=== PATIENT | male | born 1960 | race African-American/Black ===

== ENCOUNTER 2019-03-26 20:07 | Inpatient (IN) | payer OTHER ==
[2019-03-26 21:44] VITALS: BMI 26.9
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
[2019-03-27] MEDS ORDERED: MAGNESIUM HYDROX 2400MG/30ML ORAL SUSPENSION 30 ML CUP PO PRN (01:21)
[2019-03-27] MEDS ORDERED: MAGNESIUM CITRATE 300 ML BOTTLE PO PRN (01:21)
[2019-03-27] MEDS ORDERED: NICOTINE POLACRILEX 2 MG GUM BUC PRN (01:21)
[2019-03-27] MEDS ORDERED: guaiFENesin 200 MG/10 ML 10 ML UNIT-DOSE CUPS PO PRN (01:21)
[2019-03-27] MEDS ORDERED: ACETAMINOPHEN 325 MG TABLET (FP) PO PRN (01:21)
[2019-03-27] MEDS ORDERED: MENTHOL/PHENOL 1 EACH UD MM PRN (01:21)
[2019-03-27] MEDS ORDERED: LOPERAMIDE HCL 2 MG CAPSULE PO PRN (01:21)
[2019-03-27] MEDS ORDERED: MAG HYDROX/AL HYDROX/SIMETH 30 ML UNIT-DOSE CUP PO PRN (01:21)
[2019-03-27] MEDS ORDERED: TUBERCULIN PPD 5 TU/0.1ML VIAL ID ONE (02:01)
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
--- NOTE | 2019-03-27 10:14 | EKG ---
Test Reason : Blood Pressure : / mmHG Vent. Rate : 072 BPM Atrial Rate : 072 BPM P-R Int : 122 ms QRS Dur : 098 ms QT Int : 428 ms P-R-T Axes : 074 054 054 degrees QTc Int : 468 ms NORMAL SINUS RHYTHM NORMAL ECG WHEN COMPARED WITH ECG OF 27-MAR-2019 01:28, NO SIGNIFICANT CHANGE WAS FOUND Confirmed by MD Arnaud, Rafal ([id number]) on 03/27/2019 10:14:18 AM Referred By: Collin BERG Confirmed By:Rafal Lares MD
--- NOTE | 2019-03-27 10:14 | EKG ---
Test Reason : Blood Pressure : / mmHG Vent. Rate : 061 BPM Atrial Rate : 061 BPM P-R Int : 126 ms QRS Dur : 108 ms QT Int : 450 ms P-R-T Axes : 075 049 051 degrees QTc Int : 453 ms NORMAL SINUS RHYTHM POSSIBLE LEFT ATRIAL ENLARGEMENT ST ELEVATION, CONSIDER EARLY REPOLARIZATION BORDERLINE ECG WHEN COMPARED WITH ECG OF 14-JUN-2017 08:41, NO SIGNIFICANT CHANGE WAS FOUND Confirmed by MD Arnaud, Rafal ([id number]) on 03/27/2019 10:13:59 AM Referred By: PENG Confirmed By:Rafal Lares MD
[2019-03-27] MEDS: PRENATAL VITAMINS W/ FOLIC ACID TABLET (FP) PO SCH (10:57)
[2019-03-27] MEDS: TAMSULOSIN HCL 0.4 MG CAP PO SCH (10:57)
[2019-03-27] MEDS: NICOTINE 14 MG/24 HOURS TOPICAL PATCH TD SCH (10:57)
[2019-03-27] MEDS: ASPIRIN 81 MG CHEWABLE TABLETS PO SCH (10:57)
[2019-03-27 12:14] LABS: ALBUMIN 3.6 g/dl (3.4-5.0); BILIRUBIN,TOTAL 0.5 mg/dL (0.2-1); BLOOD UREA NITROGEN 14.8 mg/dL (7-18); CALCIUM 9.2 mg/dL (8.5-10.1); CREATININE 1.1 mg/dL (0.55-1.3); POTASSIUM 4.2 mmol/L (3.5-5.1); TOT PROT 7.4 g/dl (6.4-8.2)
[2019-03-27 12:15] LABS: HEMATOCRIT 41.6 % (35.4-49); HEMOGLOBIN 13.7 GM/dL (11.7-16.9); MCH 28.5 pg (25.7-33.7); MCHC 32.9 g/dl (32.0-35.9); MEAN CELL VOLUME 86.7 fl (80-96); MEAN PLT VOLUME 7.7 fl (7.5-11.1); PLATELET COUNT 285 K/MM3 (134-434); RDW 14.3 % (11.9-15.9)
[2019-03-27 14:40] LABS: EPI CELLS 0.1 /HPF (0-5/HPF); HYALINE CASTS 51 /lpf (0-8); PH,URINE 5.5 (5.0-8.0); URINE APPEARANCE CLEAR; URINE BACTERIA 2.2 /hpf (NEGATIVE); URINE BILIRUBIN NEGATIVE (NEGATIVE); URINE COLOR YELLOW; URINE GLUCOSE (UA) NEGATIVE (NEGATIVE); URINE KETONE NEGATIVE (NEGATIVE); URINE LEUK ESTERASE 1+ (NEGATIVE); URINE NITRITE NEGATIVE (NEGATIVE); URINE PROTEIN NEGATIVE (NEGATIVE); URINE RBC 2 /hpf (0-4); URINE WBC 156 /hpf (0-5)
[2019-03-27] MEDS: IBUPROFEN 400 MG TABLET (FP) PO PRN (15:37)
[2019-03-27] MEDS: ATORVASTATIN CA 10 MG TABLET (FP) PO SCH (21:39)
[2019-03-27] MEDS: MIRTAZAPINE 15 MG TABLET (FP) PO SCH (21:39)
[2019-03-27] MEDS: THIAMINE HCL 100 MG TABLET (FP) PO SCH (21:40)
[2019-03-27] MEDS ORDERED: PATIENT'S OWN MEDICATION (NON-FORMULARY) (Pravastatin Sodium 20 MG) PO SCH (22:00)
[2019-03-28] MEDS: ASPIRIN 81 MG CHEWABLE TABLETS PO SCH (10:21)
[2019-03-28] MEDS: PRENATAL VITAMINS W/ FOLIC ACID TABLET (FP) PO SCH (10:21)
[2019-03-28] MEDS: TAMSULOSIN HCL 0.4 MG CAP PO SCH (10:21)
[2019-03-28] MEDS: NICOTINE 14 MG/24 HOURS TOPICAL PATCH TD SCH (10:22)
--- NOTE | 2019-03-28 14:09 | PN ---
[facility] Progress Note Note: Pt is a 58 y/o male with a hx of SALO-alcohol and cocaine use admitted to rehab from [facility] yesterday. Pt reports fatigue/body aches and wanted to rest. Pt has medical history of anemia, BPH, Genital herpes, Neuropathy, hyperlipidemia and anemia. Psychiatric history of PTSD and depression. Vital Signs - 24 hr 03/28/19 03/28/19 03/28/19 00:30 03:30 07:19 Temperature 97.7 F Pulse Rate 71 Respiratory 18 18 18 Rate Blood Pressure 117/79 Laboratory Tests 03/27/19 03/27/19 03/27/19 06:37 07:00 07:00 WBC 4.0 RBC 4.80 Hgb 13.7 Hct 41.6 D MCV 86.7 MCH 28.5 MCHC 32.9 RDW 14.3 Plt Count 285 MPV 7.7 Sodium 141 Potassium 4.2 Chloride 106 Carbon Dioxide 28 Anion Gap 7 L BUN 14.8 Creatinine 1.1 Est GFR (CKD-EPI)AfAm 84.71 Est GFR (CKD-EPI)NonAf 73.09 Random Glucose 93 Calcium 9.2 Total Bilirubin 0.5 AST 24 ALT 37 Alkaline Phosphatase 71 Total Protein 7.4 Albumin 3.6 Urine Color Yellow Urine Appearance Clear Urine pH 5.5 Ur Specific [place] 1.028 Urine Protein Negative Urine Glucose (UA) Negative Urine Ketones Negative Urine Blood Negative Urine Nitrite Negative Urine Bilirubin Negative Urine Urobilinogen 1.0 Ur Leukocyte Esterase 1+ H Urine WBC (Auto) 156 Urine RBC (Auto) 2 Urine Casts (Auto) 51 U Epithel Cells (Auto) 0.1 Urine Bacteria (Auto) 2.2 RPR Titer 03/27/19 07:00 WBC RBC Hgb Hct MCV MCH MCHC RDW Plt Count MPV Sodium Potassium Chloride Carbon Dioxide Anion Gap BUN Creatinine Est GFR (CKD-EPI)AfAm Est GFR (CKD-EPI)NonAf Random Glucose Calcium Total Bilirubin AST ALT Alkaline Phosphatase Total Protein Albumin Urine Color Urine Appearance Urine pH Ur Specific [place] Urine Protein Urine Glucose (UA) Urine Ketones Urine Blood Urine Nitrite Urine Bilirubin Urine Urobilinogen Ur Leukocyte Esterase Urine WBC (Auto) Urine RBC (Auto) Urine Casts (Auto) U Epithel Cells (Auto) Urine Bacteria (Auto) RPR Titer Nonreactive Alert o x 3 nad oob ambulating with steady gait labs noted UA noted abnl A/P new pt to rehab Maintain safety increase po fluids UC motrin prn
[2019-03-28] MEDS: ATORVASTATIN CA 10 MG TABLET (FP) PO SCH (21:34)
[2019-03-28] MEDS: MELATONIN 5 MG TABLETS PO PRN (21:35)
[2019-03-28] MEDS: MIRTAZAPINE 15 MG TABLET (FP) PO SCH (21:35)
[2019-03-28] MEDS: THIAMINE HCL 100 MG TABLET (FP) PO SCH (21:35)
[2019-03-29] MEDS: PRENATAL VITAMINS W/ FOLIC ACID TABLET (FP) PO SCH (10:41)
[2019-03-29] MEDS: NICOTINE 14 MG/24 HOURS TOPICAL PATCH TD SCH (10:41)
[2019-03-29] MEDS: TAMSULOSIN HCL 0.4 MG CAP PO SCH (10:41)
[2019-03-29] MEDS: ASPIRIN 81 MG CHEWABLE TABLETS PO SCH (10:41)
[2019-03-29] MEDS: THIAMINE HCL 100 MG TABLET (FP) PO SCH (21:26)
[2019-03-29] MEDS: ATORVASTATIN CA 10 MG TABLET (FP) PO SCH (21:26)
[2019-03-29] MEDS: MIRTAZAPINE 15 MG TABLET (FP) PO SCH (21:26)
[2019-03-30] MEDS: TAMSULOSIN HCL 0.4 MG CAP PO SCH (10:10)
[2019-03-30] MEDS: PRENATAL VITAMINS W/ FOLIC ACID TABLET (FP) PO SCH (10:10)
[2019-03-30] MEDS: NICOTINE 14 MG/24 HOURS TOPICAL PATCH TD SCH (10:11)
[2019-03-30] MEDS: ASPIRIN 81 MG CHEWABLE TABLETS PO SCH (10:11)
[2019-03-30] MEDS: THIAMINE HCL 100 MG TABLET (FP) PO SCH (21:34)
[2019-03-30] MEDS: ATORVASTATIN CA 10 MG TABLET (FP) PO SCH (21:34)
[2019-03-30] MEDS: MIRTAZAPINE 15 MG TABLET (FP) PO SCH (21:34)
[2019-03-31] MEDS: TAMSULOSIN HCL 0.4 MG CAP PO SCH (09:00)
[2019-03-31] MEDS: NICOTINE 14 MG/24 HOURS TOPICAL PATCH TD SCH (10:59)
[2019-03-31] MEDS: PRENATAL VITAMINS W/ FOLIC ACID TABLET (FP) PO SCH (10:59)
[2019-03-31] MEDS: ASPIRIN 81 MG CHEWABLE TABLETS PO SCH (10:59)
[2019-03-31] MEDS: MIRTAZAPINE 15 MG TABLET (FP) PO SCH (21:29)
[2019-03-31] MEDS: IBUPROFEN 400 MG TABLET (FP) PO PRN (21:29)
[2019-03-31] MEDS: ATORVASTATIN CA 10 MG TABLET (FP) PO SCH (21:29)
[2019-03-31] MEDS: THIAMINE HCL 100 MG TABLET (FP) PO SCH (21:29)
[2019-04-01] MEDS: TAMSULOSIN HCL 0.4 MG CAP PO SCH (08:50)
[2019-04-01] MEDS: ASPIRIN 81 MG CHEWABLE TABLETS PO SCH (10:20)
[2019-04-01] MEDS: PRENATAL VITAMINS W/ FOLIC ACID TABLET (FP) PO SCH (10:20)
[2019-04-01] MEDS: NICOTINE 14 MG/24 HOURS TOPICAL PATCH TD SCH (10:21)
[2019-04-01] MEDS: THIAMINE HCL 100 MG TABLET (FP) PO SCH (21:04)
[2019-04-01] MEDS: ATORVASTATIN CA 10 MG TABLET (FP) PO SCH (21:04)
[2019-04-01] MEDS: MIRTAZAPINE 15 MG TABLET (FP) PO SCH (21:05)
[2019-04-02] MEDS: TAMSULOSIN HCL 0.4 MG CAP PO SCH (10:30)
[2019-04-02] MEDS: PRENATAL VITAMINS W/ FOLIC ACID TABLET (FP) PO SCH (10:30)
[2019-04-02] MEDS: ASPIRIN 81 MG CHEWABLE TABLETS PO SCH (10:31)
[2019-04-02] MEDS: NICOTINE 14 MG/24 HOURS TOPICAL PATCH TD SCH (10:31)
[2019-04-02] MEDS: ATORVASTATIN CA 10 MG TABLET (FP) PO SCH (21:59)
[2019-04-02] MEDS: THIAMINE HCL 100 MG TABLET (FP) PO SCH (22:00)
[2019-04-02] MEDS: MIRTAZAPINE 15 MG TABLET (FP) PO SCH (22:00)
[2019-04-03] MEDS: PRENATAL VITAMINS W/ FOLIC ACID TABLET (FP) PO SCH (10:54)
[2019-04-03] MEDS: ASPIRIN 81 MG CHEWABLE TABLETS PO SCH (10:54)
[2019-04-03] MEDS: TAMSULOSIN HCL 0.4 MG CAP PO SCH (10:54)
[2019-04-03] MEDS: NICOTINE 14 MG/24 HOURS TOPICAL PATCH TD SCH (10:54)
[2019-04-03] MEDS: THIAMINE HCL 100 MG TABLET (FP) PO SCH (21:58)
[2019-04-03] MEDS: ATORVASTATIN CA 10 MG TABLET (FP) PO SCH (21:58)
[2019-04-03] MEDS: MIRTAZAPINE 15 MG TABLET (FP) PO SCH (21:58)
[2019-04-04] MEDS: TAMSULOSIN HCL 0.4 MG CAP PO SCH (09:30)
[2019-04-04] MEDS: ASPIRIN 81 MG CHEWABLE TABLETS PO SCH (10:57)
[2019-04-04] MEDS: PRENATAL VITAMINS W/ FOLIC ACID TABLET (FP) PO SCH (10:57)
[2019-04-04] MEDS: NICOTINE 14 MG/24 HOURS TOPICAL PATCH TD SCH (10:57)
[2019-04-04] MEDS: P-EPHED 60MG/TRIPROLIDI 2.5MG TABLET PO PRN ×2 (11:11→22:07)
[2019-04-04] MEDS: MIRTAZAPINE 15 MG TABLET (FP) PO SCH (22:06)
[2019-04-04] MEDS: ATORVASTATIN CA 10 MG TABLET (FP) PO SCH (22:06)
[2019-04-04] MEDS: THIAMINE HCL 100 MG TABLET (FP) PO SCH (22:06)
[2019-04-05] MEDS: TAMSULOSIN HCL 0.4 MG CAP PO SCH (10:39)
[2019-04-05] MEDS: NICOTINE 14 MG/24 HOURS TOPICAL PATCH TD SCH (10:39)
[2019-04-05] MEDS: ASPIRIN 81 MG CHEWABLE TABLETS PO SCH (10:39)
[2019-04-05] MEDS: PRENATAL VITAMINS W/ FOLIC ACID TABLET (FP) PO SCH (10:39)
[2019-04-05] MEDS: P-EPHED 60MG/TRIPROLIDI 2.5MG TABLET PO PRN ×2 (10:40→21:48)
[2019-04-05] MEDS: THIAMINE HCL 100 MG TABLET (FP) PO SCH (21:47)
[2019-04-05] MEDS: MIRTAZAPINE 15 MG TABLET (FP) PO SCH (21:47)
[2019-04-05] MEDS: ATORVASTATIN CA 10 MG TABLET (FP) PO SCH (21:47)
[2019-04-06] MEDS: PRENATAL VITAMINS W/ FOLIC ACID TABLET (FP) PO SCH (09:30)
[2019-04-06] MEDS: ASPIRIN 81 MG CHEWABLE TABLETS PO SCH (09:30)
[2019-04-06] MEDS: TAMSULOSIN HCL 0.4 MG CAP PO SCH (09:30)
[2019-04-06] MEDS: P-EPHED 60MG/TRIPROLIDI 2.5MG TABLET PO PRN ×2 (09:32→21:54)
[2019-04-06] MEDS: NICOTINE 14 MG/24 HOURS TOPICAL PATCH TD SCH (10:46)
[2019-04-06] MEDS: MIRTAZAPINE 15 MG TABLET (FP) PO SCH (21:53)
[2019-04-06] MEDS: THIAMINE HCL 100 MG TABLET (FP) PO SCH (21:53)
[2019-04-06] MEDS: ATORVASTATIN CA 10 MG TABLET (FP) PO SCH (21:53)
[2019-04-07] MEDS: TAMSULOSIN HCL 0.4 MG CAP PO SCH (09:00)
[2019-04-07] MEDS: PRENATAL VITAMINS W/ FOLIC ACID TABLET (FP) PO SCH (10:44)
[2019-04-07] MEDS: ASPIRIN 81 MG CHEWABLE TABLETS PO SCH (10:44)
[2019-04-07] MEDS: NICOTINE 14 MG/24 HOURS TOPICAL PATCH TD SCH (10:46)
[2019-04-07] MEDS: P-EPHED 60MG/TRIPROLIDI 2.5MG TABLET PO PRN ×2 (14:51→22:03)
[2019-04-07] MEDS: MIRTAZAPINE 15 MG TABLET (FP) PO SCH (22:02)
[2019-04-07] MEDS: THIAMINE HCL 100 MG TABLET (FP) PO SCH (22:02)
[2019-04-07] MEDS: ATORVASTATIN CA 10 MG TABLET (FP) PO SCH (22:02)
[2019-04-08] MEDS: ASPIRIN 81 MG CHEWABLE TABLETS PO SCH (10:23)
[2019-04-08] MEDS: TAMSULOSIN HCL 0.4 MG CAP PO SCH (10:23)
[2019-04-08] MEDS: PRENATAL VITAMINS W/ FOLIC ACID TABLET (FP) PO SCH (10:23)
[2019-04-08] MEDS: P-EPHED 60MG/TRIPROLIDI 2.5MG TABLET PO PRN ×2 (10:23→22:00)
[2019-04-08] MEDS: NICOTINE 14 MG/24 HOURS TOPICAL PATCH TD SCH (10:23)
[2019-04-08] MEDS: THIAMINE HCL 100 MG TABLET (FP) PO SCH (21:59)
[2019-04-08] MEDS: ATORVASTATIN CA 10 MG TABLET (FP) PO SCH (21:59)
[2019-04-08] MEDS: MIRTAZAPINE 15 MG TABLET (FP) PO SCH (21:59)
[2019-04-09] MEDS: NICOTINE 14 MG/24 HOURS TOPICAL PATCH TD SCH (11:26)
[2019-04-09] MEDS: TAMSULOSIN HCL 0.4 MG CAP PO SCH (11:26)
[2019-04-09] MEDS: PRENATAL VITAMINS W/ FOLIC ACID TABLET (FP) PO SCH (11:26)
[2019-04-09] MEDS: ASPIRIN 81 MG CHEWABLE TABLETS PO SCH (11:26)
[2019-04-09] MEDS: P-EPHED 60MG/TRIPROLIDI 2.5MG TABLET PO PRN ×2 (11:28→21:43)
[2019-04-09] MEDS: THIAMINE HCL 100 MG TABLET (FP) PO SCH (21:43)
[2019-04-09] MEDS: MIRTAZAPINE 15 MG TABLET (FP) PO SCH (21:43)
[2019-04-09] MEDS: ATORVASTATIN CA 10 MG TABLET (FP) PO SCH (21:43)
[2019-04-10] MEDS: TAMSULOSIN HCL 0.4 MG CAP PO SCH (08:35)
[2019-04-10] MEDS: ASPIRIN 81 MG CHEWABLE TABLETS PO SCH (09:35)
[2019-04-10] MEDS: PRENATAL VITAMINS W/ FOLIC ACID TABLET (FP) PO SCH (09:35)
[2019-04-10] MEDS: NICOTINE 14 MG/24 HOURS TOPICAL PATCH TD SCH (09:36)
[2019-04-10] MEDS: MIRTAZAPINE 15 MG TABLET (FP) PO SCH (22:03)
[2019-04-10] MEDS: THIAMINE HCL 100 MG TABLET (FP) PO SCH (22:03)
[2019-04-10] MEDS: ATORVASTATIN CA 10 MG TABLET (FP) PO SCH (22:03)
[2019-04-10] MEDS: MELATONIN 5 MG TABLETS PO PRN (22:03)
[2019-04-10] MEDS: P-EPHED 60MG/TRIPROLIDI 2.5MG TABLET PO PRN (22:04)
[2019-04-11] MEDS: ASPIRIN 81 MG CHEWABLE TABLETS PO SCH (11:21)
[2019-04-11] MEDS: NICOTINE 14 MG/24 HOURS TOPICAL PATCH TD SCH (11:21)
[2019-04-11] MEDS: TAMSULOSIN HCL 0.4 MG CAP PO SCH (11:21)
[2019-04-11] MEDS: PRENATAL VITAMINS W/ FOLIC ACID TABLET (FP) PO SCH (11:21)
[2019-04-11] MEDS: P-EPHED 60MG/TRIPROLIDI 2.5MG TABLET PO PRN ×2 (11:22→22:01)
[2019-04-11] MEDS: ATORVASTATIN CA 10 MG TABLET (FP) PO SCH (22:01)
[2019-04-11] MEDS: THIAMINE HCL 100 MG TABLET (FP) PO SCH (22:01)
[2019-04-11] MEDS: MIRTAZAPINE 15 MG TABLET (FP) PO SCH (22:01)
[2019-04-12] MEDS: ASPIRIN 81 MG CHEWABLE TABLETS PO SCH (09:29)
[2019-04-12] MEDS: PRENATAL VITAMINS W/ FOLIC ACID TABLET (FP) PO SCH (09:29)
[2019-04-12] MEDS: NICOTINE 14 MG/24 HOURS TOPICAL PATCH TD SCH (09:29)
[2019-04-12] MEDS: TAMSULOSIN HCL 0.4 MG CAP PO SCH (09:29)
[2019-04-12] MEDS: P-EPHED 60MG/TRIPROLIDI 2.5MG TABLET PO PRN ×2 (09:31→21:45)
[2019-04-12] MEDS: THIAMINE HCL 100 MG TABLET (FP) PO SCH (21:45)
[2019-04-12] MEDS: MIRTAZAPINE 15 MG TABLET (FP) PO SCH (21:45)
[2019-04-12] MEDS: ATORVASTATIN CA 10 MG TABLET (FP) PO SCH (21:45)
[2019-04-13] MEDS: TAMSULOSIN HCL 0.4 MG CAP PO SCH (09:09)
[2019-04-13] MEDS: PRENATAL VITAMINS W/ FOLIC ACID TABLET (FP) PO SCH (09:09)
[2019-04-13] MEDS: ASPIRIN 81 MG CHEWABLE TABLETS PO SCH (09:09)
[2019-04-13] MEDS: P-EPHED 60MG/TRIPROLIDI 2.5MG TABLET PO PRN ×2 (09:09→21:35)
[2019-04-13] MEDS: NICOTINE 14 MG/24 HOURS TOPICAL PATCH TD SCH (09:10)
[2019-04-13] MEDS: ATORVASTATIN CA 10 MG TABLET (FP) PO SCH (21:35)
[2019-04-13] MEDS: THIAMINE HCL 100 MG TABLET (FP) PO SCH (21:35)
[2019-04-13] MEDS: MIRTAZAPINE 15 MG TABLET (FP) PO SCH (21:35)
[2019-04-14] MEDS: TAMSULOSIN HCL 0.4 MG CAP PO SCH (10:00)
[2019-04-14] MEDS: ASPIRIN 81 MG CHEWABLE TABLETS PO SCH (10:00)
[2019-04-14] MEDS: PRENATAL VITAMINS W/ FOLIC ACID TABLET (FP) PO SCH (10:00)
[2019-04-14] MEDS: NICOTINE 14 MG/24 HOURS TOPICAL PATCH TD SCH (10:00)
[2019-04-14] MEDS: P-EPHED 60MG/TRIPROLIDI 2.5MG TABLET PO PRN ×2 (10:02→21:29)
[2019-04-14] MEDS: MIRTAZAPINE 15 MG TABLET (FP) PO SCH (21:28)
[2019-04-14] MEDS: ATORVASTATIN CA 10 MG TABLET (FP) PO SCH (21:28)
[2019-04-14] MEDS: THIAMINE HCL 100 MG TABLET (FP) PO SCH (21:28)
[2019-04-15] MEDS: TAMSULOSIN HCL 0.4 MG CAP PO SCH (10:23)
[2019-04-15] MEDS: NICOTINE 14 MG/24 HOURS TOPICAL PATCH TD SCH (10:23)
[2019-04-15] MEDS: PRENATAL VITAMINS W/ FOLIC ACID TABLET (FP) PO SCH (10:24)
[2019-04-15] MEDS: ASPIRIN 81 MG CHEWABLE TABLETS PO SCH (10:24)
[2019-04-15] MEDS: P-EPHED 60MG/TRIPROLIDI 2.5MG TABLET PO PRN ×2 (10:24→22:05)
[2019-04-15] MEDS: MIRTAZAPINE 15 MG TABLET (FP) PO SCH (22:05)
[2019-04-15] MEDS: THIAMINE HCL 100 MG TABLET (FP) PO SCH (22:05)
[2019-04-15] MEDS: ATORVASTATIN CA 10 MG TABLET (FP) PO SCH (22:05)
[2019-04-15] MEDS: MELATONIN 5 MG TABLETS PO PRN (22:06)
[2019-04-16] MEDS: TAMSULOSIN HCL 0.4 MG CAP PO SCH (10:25)
[2019-04-16] MEDS: ASPIRIN 81 MG CHEWABLE TABLETS PO SCH (10:25)
[2019-04-16] MEDS: NICOTINE 14 MG/24 HOURS TOPICAL PATCH TD SCH (10:25)
[2019-04-16] MEDS: PRENATAL VITAMINS W/ FOLIC ACID TABLET (FP) PO SCH (10:25)
[2019-04-16] MEDS: P-EPHED 60MG/TRIPROLIDI 2.5MG TABLET PO PRN ×2 (10:27→21:31)
[2019-04-16] MEDS: ATORVASTATIN CA 10 MG TABLET (FP) PO SCH (21:29)
[2019-04-16] MEDS: THIAMINE HCL 100 MG TABLET (FP) PO SCH (21:30)
[2019-04-16] MEDS: MIRTAZAPINE 15 MG TABLET (FP) PO SCH (21:30)
[2019-04-17] MEDS: PRENATAL VITAMINS W/ FOLIC ACID TABLET (FP) PO SCH (09:27)
[2019-04-17] MEDS: TAMSULOSIN HCL 0.4 MG CAP PO SCH (09:27)
[2019-04-17] MEDS: ASPIRIN 81 MG CHEWABLE TABLETS PO SCH (09:27)
[2019-04-17] MEDS: P-EPHED 60MG/TRIPROLIDI 2.5MG TABLET PO PRN ×2 (09:28→21:54)
[2019-04-17] MEDS: NICOTINE 14 MG/24 HOURS TOPICAL PATCH TD SCH (09:28)
[2019-04-17] MEDS: THIAMINE HCL 100 MG TABLET (FP) PO SCH (21:54)
[2019-04-17] MEDS: ATORVASTATIN CA 10 MG TABLET (FP) PO SCH (21:54)
[2019-04-17] MEDS: MIRTAZAPINE 15 MG TABLET (FP) PO SCH (21:54)
[2019-04-18] MEDS: PRENATAL VITAMINS W/ FOLIC ACID TABLET (FP) PO SCH (10:43)
[2019-04-18] MEDS: NICOTINE 14 MG/24 HOURS TOPICAL PATCH TD SCH (10:43)
[2019-04-18] MEDS: ASPIRIN 81 MG CHEWABLE TABLETS PO SCH (10:43)
[2019-04-18] MEDS: TAMSULOSIN HCL 0.4 MG CAP PO SCH (10:43)
[2019-04-18] MEDS: P-EPHED 60MG/TRIPROLIDI 2.5MG TABLET PO PRN ×2 (10:44→21:46)
--- NOTE | 2019-04-18 15:00 | PN ---
[facility] Progress Note Note: pt reports a small abrasion on right lower extremity. States he picked a scab off and it started bleeding. Pt requesting A& D Ointment for dry skin. Vital Signs - 24 hr 04/18/19 04/18/19 04/18/19 00:30 03:30 07:17 Temperature 97.8 F Pulse Rate 70 Respiratory 18 18 18 Rate Blood Pressure 118/79 Extremities/skin: small area of abrasion on right lateral kiser. No bleeding noted. No swelling of surroundings. A/p Skin abrasion Bacitarcin Ointment apply as directed. A & D Ointment apply daily to affected areas.
[2019-04-18] MEDS: BACITRACIN 15 GM TUBE TOPICAL OINTMENT TP SCH (16:04)
[2019-04-18] MEDS: VITAMINS A AND D TOPICAL OINTMENT 60 GM TUBE TP SCH (16:04)
[2019-04-18] MEDS: ATORVASTATIN CA 10 MG TABLET (FP) PO SCH (21:45)
[2019-04-18] MEDS: THIAMINE HCL 100 MG TABLET (FP) PO SCH (21:46)
[2019-04-18] MEDS: MIRTAZAPINE 15 MG TABLET (FP) PO SCH (21:46)
[2019-04-19] MEDS: NICOTINE 14 MG/24 HOURS TOPICAL PATCH TD SCH (10:35)
[2019-04-19] MEDS: VITAMINS A AND D TOPICAL OINTMENT 60 GM TUBE TP SCH (10:36)
[2019-04-19] MEDS: PRENATAL VITAMINS W/ FOLIC ACID TABLET (FP) PO SCH (10:36)
[2019-04-19] MEDS: P-EPHED 60MG/TRIPROLIDI 2.5MG TABLET PO PRN (10:36)
[2019-04-19] MEDS: BACITRACIN 15 GM TUBE TOPICAL OINTMENT TP SCH (10:36)
[2019-04-19] MEDS: TAMSULOSIN HCL 0.4 MG CAP PO SCH (10:36)
[2019-04-19] MEDS: ASPIRIN 81 MG CHEWABLE TABLETS PO SCH (10:36)
[2019-04-19] MEDS: ATORVASTATIN CA 10 MG TABLET (FP) PO SCH (21:36)
[2019-04-19] MEDS: THIAMINE HCL 100 MG TABLET (FP) PO SCH (21:36)
[2019-04-19] MEDS: MIRTAZAPINE 15 MG TABLET (FP) PO SCH (21:36)
[2019-04-20] MEDS: NICOTINE 14 MG/24 HOURS TOPICAL PATCH TD SCH (10:46)
[2019-04-20] MEDS: TAMSULOSIN HCL 0.4 MG CAP PO SCH (10:46)
[2019-04-20] MEDS: PRENATAL VITAMINS W/ FOLIC ACID TABLET (FP) PO SCH (10:46)
[2019-04-20] MEDS: ASPIRIN 81 MG CHEWABLE TABLETS PO SCH (10:46)
[2019-04-20] MEDS: VITAMINS A AND D TOPICAL OINTMENT 60 GM TUBE TP SCH (10:47)
[2019-04-20] MEDS: P-EPHED 60MG/TRIPROLIDI 2.5MG TABLET PO PRN ×2 (10:47→21:26)
[2019-04-20] MEDS: BACITRACIN 15 GM TUBE TOPICAL OINTMENT TP SCH (10:47)
[2019-04-20] MEDS: MIRTAZAPINE 15 MG TABLET (FP) PO SCH (21:25)
[2019-04-20] MEDS: MELATONIN 5 MG TABLETS PO PRN (21:25)
[2019-04-20] MEDS: THIAMINE HCL 100 MG TABLET (FP) PO SCH (21:25)
[2019-04-20] MEDS: ATORVASTATIN CA 10 MG TABLET (FP) PO SCH (21:25)
[2019-04-21] MEDS: NICOTINE 14 MG/24 HOURS TOPICAL PATCH TD SCH (10:14)
[2019-04-21] MEDS: VITAMINS A AND D TOPICAL OINTMENT 60 GM TUBE TP SCH (10:14)
[2019-04-21] MEDS: BACITRACIN 15 GM TUBE TOPICAL OINTMENT TP SCH (10:14)
[2019-04-21] MEDS: TAMSULOSIN HCL 0.4 MG CAP PO SCH (10:14)
[2019-04-21] MEDS: ASPIRIN 81 MG CHEWABLE TABLETS PO SCH (10:14)
[2019-04-21] MEDS: PRENATAL VITAMINS W/ FOLIC ACID TABLET (FP) PO SCH (10:14)
[2019-04-21] MEDS: ATORVASTATIN CA 10 MG TABLET (FP) PO SCH (21:52)
[2019-04-21] MEDS: MIRTAZAPINE 15 MG TABLET (FP) PO SCH (21:52)
[2019-04-21] MEDS: THIAMINE HCL 100 MG TABLET (FP) PO SCH (21:52)
[2019-04-21] MEDS: MELATONIN 5 MG TABLETS PO PRN (21:52)
[2019-04-21] MEDS: P-EPHED 60MG/TRIPROLIDI 2.5MG TABLET PO PRN (21:53)
[2019-04-22] MEDS: ASPIRIN 81 MG CHEWABLE TABLETS PO SCH (09:28)
[2019-04-22] MEDS: PRENATAL VITAMINS W/ FOLIC ACID TABLET (FP) PO SCH (09:28)
[2019-04-22] MEDS: TAMSULOSIN HCL 0.4 MG CAP PO SCH (09:28)
[2019-04-22] MEDS: BACITRACIN 15 GM TUBE TOPICAL OINTMENT TP SCH (09:29)
[2019-04-22] MEDS: P-EPHED 60MG/TRIPROLIDI 2.5MG TABLET PO PRN ×2 (09:29→21:46)
[2019-04-22] MEDS: NICOTINE 14 MG/24 HOURS TOPICAL PATCH TD SCH (09:29)
[2019-04-22] MEDS: VITAMINS A AND D TOPICAL OINTMENT 60 GM TUBE TP SCH (09:29)
[2019-04-22] MEDS: ATORVASTATIN CA 10 MG TABLET (FP) PO SCH (21:45)
[2019-04-22] MEDS: THIAMINE HCL 100 MG TABLET (FP) PO SCH (21:45)
[2019-04-22] MEDS: MIRTAZAPINE 15 MG TABLET (FP) PO SCH (21:45)
[2019-04-22] MEDS: MELATONIN 5 MG TABLETS PO PRN (21:45)
[2019-04-23] MEDS: TAMSULOSIN HCL 0.4 MG CAP PO SCH (11:11)
[2019-04-23] MEDS: ASPIRIN 81 MG CHEWABLE TABLETS PO SCH (11:11)
[2019-04-23] MEDS: PRENATAL VITAMINS W/ FOLIC ACID TABLET (FP) PO SCH (11:11)
[2019-04-23] MEDS: BACITRACIN 15 GM TUBE TOPICAL OINTMENT TP SCH (11:12)
[2019-04-23] MEDS: NICOTINE 14 MG/24 HOURS TOPICAL PATCH TD SCH (11:12)
[2019-04-23] MEDS: VITAMINS A AND D TOPICAL OINTMENT 60 GM TUBE TP SCH (11:12)
[2019-04-23] MEDS: P-EPHED 60MG/TRIPROLIDI 2.5MG TABLET PO PRN ×2 (11:14→21:41)
--- NOTE | 2019-04-23 13:58 | PN ---
[facility] Progress Note Note: Patient is scheduled for discharged tomorrow. Script for 30 days supply of Remeron 15 mg/hs electronically transmitted to [facility] at [address] [place], [place] [id number]
[2019-04-23] MEDS: MIRTAZAPINE 15 MG TABLET (FP) PO SCH (21:41)
[2019-04-23] MEDS: ATORVASTATIN CA 10 MG TABLET (FP) PO SCH (21:41)
[2019-04-23] MEDS: THIAMINE HCL 100 MG TABLET (FP) PO SCH (21:41)
[2019-04-23] MEDS: MELATONIN 5 MG TABLETS PO PRN (21:41)
[2019-04-24 07:02] VITALS: BP 117/80; PULSE 62; TEMP 97.3
[2019-04-24] MEDS: NICOTINE 14 MG/24 HOURS TOPICAL PATCH TD SCH (09:19)
[2019-04-24] MEDS: TAMSULOSIN HCL 0.4 MG CAP PO SCH (09:19)
[2019-04-24] MEDS: VITAMINS A AND D TOPICAL OINTMENT 60 GM TUBE TP SCH (09:19)
[2019-04-24] MEDS: ASPIRIN 81 MG CHEWABLE TABLETS PO SCH (09:19)
[2019-04-24] MEDS: PRENATAL VITAMINS W/ FOLIC ACID TABLET (FP) PO SCH (09:19)
[2019-04-24] MEDS: BACITRACIN 15 GM TUBE TOPICAL OINTMENT TP SCH (09:19)
--- NOTE | 2019-04-24 09:36 | DS ---
[facility] Rehab Discharge Summary - [facility] Rehab Discharge Summary Admission Date: 03/27/19 Discharge Date: 04/24/19 - History Present History: Alcohol dependence, Cannabis dependence, Cocaine dependence Additional Comments: Pt is a 58 y/o male wth a hx of SALO-alcohol,cocaine and marijuana admitted to rehab and scheduled for discharge today. Pertinent Past History: Pt has medical history of anemia, BPH, Genital herpes, Neuropathy, hyperlipidemia and anemia. Psychiatric history of PTSD and depression. - Discharge Physical Exam Vital Signs: Vital Signs Temperature 97.3 F L 04/24/19 07:00 Pulse Rate 62 04/24/19 07:00 Respiratory Rate 18 04/24/19 07:00 Blood Pressure 117/80 04/24/19 07:00 O2 Sat by Pulse Oximetry (%) Alert o x 3,denies s/h/i nad oob ambulating with steady gait cardiac:s1 s2,rrr lungs:cta,lashonda Pertinent Admission Physical Exam Findings: Laboratory Tests 03/27/19 03/27/19 03/27/19 06:37 07:00 07:00 WBC 4.0 RBC 4.80 Hgb 13.7 Hct 41.6 D MCV 86.7 MCH 28.5 MCHC 32.9 RDW 14.3 Plt Count 285 MPV 7.7 Sodium 141 Potassium 4.2 Chloride 106 Carbon Dioxide 28 Anion Gap 7 L BUN 14.8 Creatinine 1.1 Est GFR (CKD-EPI)AfAm 84.71 Est GFR (CKD-EPI)NonAf 73.09 Random Glucose 93 Calcium 9.2 Total Bilirubin 0.5 AST 24 ALT 37 Alkaline Phosphatase 71 Total Protein 7.4 Albumin 3.6 Urine Color Yellow Urine Appearance Clear Urine pH 5.5 Ur Specific [place] 1.028 Urine Protein Negative Urine Glucose (UA) Negative Urine Ketones Negative Urine Blood Negative Urine Nitrite Negative Urine Bilirubin Negative Urine Urobilinogen 1.0 Ur Leukocyte Esterase 1+ H Urine WBC (Auto) 156 Urine RBC (Auto) 2 Urine Casts (Auto) 51 U Epithel Cells (Auto) 0.1 Urine Bacteria (Auto) 2.2 RPR Titer 03/27/19 07:00 WBC RBC Hgb Hct MCV MCH MCHC RDW Plt Count MPV Sodium Potassium Chloride Carbon Dioxide Anion Gap BUN Creatinine Est GFR (CKD-EPI)AfAm Est GFR (CKD-EPI)NonAf Random Glucose Calcium Total Bilirubin AST ALT Alkaline Phosphatase Total Protein Albumin Urine Color Urine Appearance Urine pH Ur Specific [place] Urine Protein Urine Glucose (UA) Urine Ketones Urine Blood Urine Nitrite Urine Bilirubin Urine Urobilinogen Ur Leukocyte Esterase Urine WBC (Auto) Urine RBC (Auto) Urine Casts (Auto) U Epithel Cells (Auto) Urine Bacteria (Auto) RPR Titer Nonreactive - Treatment Discharge Condition: Discharge condition good Hospital Course: Rehabilitated safely and responded well participated in unit group and individual activities. Met with his counselor and CD aftercare referral accepted for follow up. - Medication Discharge Medications: Ambulatory Orders Bupropion HCl [Wellbutrin Xl -] 150 mg PO DAILY 01/13/16 Gabapentin [Neurontin] 300 mg PO BID 01/13/16 Loratadine [Claritin -] 10 mg PO DAILY 01/13/16 Pravastatin Sodium [Pravachol (Nf)] 20 mg PO HS 01/13/16 Valacyclovir HCl [Valtrex -] 500 mg PO DAILY 01/13/16 Mirtazapine [Remeron -] 15 mg PO HS #30 tablet 04/23/19 Aspirin [ASA -] 81 mg PO DAILY #30 tab.chew 04/24/19 Atorvastatin Ca [Lipitor] 10 mg PO HS #30 tablet 04/24/19 Tamsulosin HCl [Flomax -] 0.4 mg PO DAILY #30 cap.er.24h 04/24/19 - Medication-Assisted Treatment (MAT) Medication-Assisted Treatment (MAT): No - Discharge Instructions Diet, activity, other medical instructions: Diet:Low cholesterol Activity: oob ad du Other medical instructions:follow up with your primary care doctor within 1-2 weeks after discharge. follow up with CD aftercare recommendation as scheduled with your counselor. - Diagnosis (1) Alcohol dependence Current Visit: Yes Status: Chronic Qualifiers: Substance use status: uncomplicated Qualified Code(s): F10.20 - Alcohol dependence, uncomplicated (2) BPH (benign prostatic hyperplasia) Current Visit: Yes Status: Chronic Qualifiers: Lower urinary tract symptom detail: weak urinary stream (3) Hypercholesterolemia Current Visit: Yes Status: Chronic (4) Cocaine dependence Current Visit: Yes Status: Chronic Qualifiers: Substance use status: uncomplicated Qualified Code(s): F14.20 - Cocaine dependence, uncomplicated (5) Chronic lower back pain Current Visit: Yes Status: Chronic Qualifiers: Back pain laterality: midline Sciatica presence: unspecified whether sciatica present Qualified Code(s): M54.5 - Low back pain; G89.29 - Other chronic pain; G89.29 - Other chronic pain (6) Nicotine dependence Current Visit: Yes Status: Chronic Qualifiers: Nicotine product type: cigarettes Substance use status: uncomplicated Qualified Code(s): F17.210 - Nicotine dependence, cigarettes, uncomplicated - Follow-up Referral Minutes to complete discharge: 20 - AMA Did Patient Leave Against Medical Advice: No Additional Comments: Courtesy Rx for Flomax 0.4 mg po daily#30, Lipitor 10 mg po HS #30, Aspirin 81 mg po daily #30 electronically 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 Pt states he will follow up with his PCP Dr. Sanjana Alcantar on [place], [place](pt not sure of this name given;pt states does not remember exact name and address of provider).
== END 2019-04-24 09:50 | disposition home or self-care (01) | DRG 772 ==
LOC: YASAS 20:07 → Y5N 03-27 00:05
PROVIDERS: ADMIT Neuromusculoskeletal Medicine & OMM; ATTEND Neuromusculoskeletal Medicine & OMM
PROC: HZ42ZZZ Group Counseling for Substance Abuse Treatment, Cognitive-Behavioral (ICD-10-PCS; principal; 2019-03-27)
DX: F10.230 Alcohol dependence with withdrawal, uncomplicated (principal); F14.20 Cocaine dependence, uncomplicated; F17.210 Nicotine dependence, cigarettes, uncomplicated; F32.9 Major depressive disorder, single episode, unspecified; F19.24 Other psychoactive substance dependence with psychoactive substance-induced mood disorder; F19.282 Other psychoactive substance dependence with psychoactive substance-induced sleep disorder; F43.10 Post-traumatic stress disorder, unspecified; E78.00 Pure hypercholesterolemia, unspecified; M54.5 Low back pain; G89.29 Other chronic pain; R82.90 Unspecified abnormal findings in urine; S80.811A Abrasion, right lower leg, initial encounter; X58.XXXA Exposure to other specified factors, initial encounter; Y93.89 Activity, other specified; Y92.239 Unspecified place in hospital as the place of occurrence of the external cause; G62.9 Polyneuropathy, unspecified; M19.90 Unspecified osteoarthritis, unspecified site; D64.9 Anemia, unspecified; Z62.810 Personal history of physical and sexual abuse in childhood; Z87.438 Personal history of other diseases of male genital organs; Z59.0 Homelessness
CPT/HCPCS: 36415; 80053; 81003; 85027; 86593; 87086; 93005; 93010

== ENCOUNTER 2019-10-13 13:56 | Inpatient (IN) | payer OTHER ==
--- NOTE | 2019-10-13 16:55 | BHS.RME ---
Substance Use & Tx History - Substance Use History Heroin Substance amount: 5 to 8 bags Frequency of use: Daily Substance route: Inhalation (ex: sniffing or snorting) Date of Last Use: 10/12/19 Cocaine-Crack Substance amount: 100$ Frequency of use: Daily Substance route: Smoking Date of Last Use: 10/12/19 - Last Treatment Date of last treatment: 05/2019 Where was last treatment: Detox Physical/Psych/Mental Status - Behavior Eye Contact: Normal - Cooperativeness Cooperativeness: Cooperative - Thinking Thought Processes: Logical Thought content: Future oriented - Physical Health Problems Is patient presently having any pain?: No Does patient presently have any injuries (include location): No Does patient currently have a fever: No COWS - Scale Resting Pulse: 1= NE 81-100 Sweatin= Chills/Flushing Restless Observation: 3= Extraneous Movement Pupil Size: 1= Pupils >than Normal Bone or Joint Aches: 2= Severe Diffuse Aches Runny Nose/ Eye Tearin= Runny Nose/Eyes GI Upset > 30mins: 2= Nausea/Diarrhea Tremor Observation: 2= Slight Tremor Visible Yawning Observation: 2= >3x During Session Anxiety or Irritability: 2=Irritable/Anxious Goose Flesh Skin: 0=Smooth Skin COWS Score: 18
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
[2019-10-13] MEDS ORDERED: MAGNESIUM HYDROX 2400MG/30ML ORAL SUSPENSION 30 ML CUP PO PRN (17:16)
[2019-10-13] MEDS ORDERED: METHOCARBAMOL 500 MG TABLET PO PRN (17:16)
[2019-10-13] MEDS ORDERED: MAGNESIUM CITRATE 300 ML BOTTLE PO PRN (17:16)
[2019-10-13] MEDS ORDERED: METHADONE HCL 10 MG TABLET (FOR DETOX USE ONLY) PO ONE (17:16)
[2019-10-13] MEDS ORDERED: ACETAMINOPHEN 325 MG TABLET (FP) PO PRN ×2 (17:16)
[2019-10-13] MEDS ORDERED: IBUPROFEN 400 MG TABLET (FP) PO PRN (17:16)
[2019-10-13] MEDS ORDERED: ONDANSETRON *ODT* 4 MG TABLET SL ONE (17:16)
[2019-10-13] MEDS ORDERED: MENTHOL/PHENOL 1 EACH UD MM PRN (17:16)
[2019-10-13] MEDS ORDERED: BISMUTH SUBSALICYLATE 524 MG/30 ML UD PO PRN (17:16)
[2019-10-13] MEDS ORDERED: MAG HYDROX/AL HYDROX/SIMETH 30 ML UNIT-DOSE CUP PO PRN (17:16)
[2019-10-13] MEDS ORDERED: cloNIDine HCL 0.1 MG TABLET PO PRN (17:16)
[2019-10-13] MEDS ORDERED: NICOTINE POLACRILEX 2 MG GUM BUC PRN (17:16)
[2019-10-13] MEDS ORDERED: diazePAM 5 MG TABLET PO PRN (17:23)
[2019-10-13 17:43] VITALS: BMI 27.2
[2019-10-13] MEDS: hydrOXYzine PAMOATE 25 MG CAPSULE (FP) PO SCH ×2 (18:23→21:10)
[2019-10-13] MEDS: THIAMINE HCL 100 MG TABLET (FP) PO SCH (21:10)
[2019-10-13] MEDS: MELATONIN 5 MG TABLETS PO SCH (21:10)
[2019-10-14] MEDS: hydrOXYzine PAMOATE 25 MG CAPSULE (FP) PO SCH ×5 (05:40→22:06)
--- NOTE | 2019-10-14 09:26 | PN ---
BHS COWS - Scale Resting Pulse: 0= [place] 80 or Below Sweatin= Chills/Flushing Restless Observation: 0= Sits Still Pupil Size: 1= Pupils >than Normal Bone or Joint Aches: 1= Mild Discomfort Runny Nose/ Eye Tearin= Nasal Congestion GI Upset > 30mins: 2= Nausea/Diarrhea Tremor Observation of Outstretched Hands: 1= Tremor [place], Not Seen Yawning Observation: 1= 1-2x During Session Anxiety or Irritability: 2=Irritable/Anxious Goose Flesh Skin: 3=Piloerection COWS Score: 13 BHS Progress Note (SOAP) Subjective: 59 years old male admitted on 10/13/19 for opiate withdrawal sx management treating with methadone detox regiment reports diarrhea after breakfast offer immodium as antidiarrhea agent mr mercado refuses encourage oral fluid Objective: 10/14/19 09:25 Vital Signs - 24 hr 10/13/19 10/13/19 10/13/19 17:23 17:32 17:42 Temperature 97.4 F L 97.4 F L 97.4 F L Pulse Rate 99 H 99 H 99 H Respiratory 18 18 18 Rate Blood Pressure 116/78 116/78 116/78 O2 Sat by Pulse Oximetry (%) 10/13/19 10/13/19 10/14/19 18:16 21:03 05:30 Temperature 97.3 F L 97.8 F 97.3 F L Pulse Rate 60 60 52 L Respiratory 18 18 16 Rate Blood Pressure 128/78 106/61 100/68 O2 Sat by Pulse 99 98 Oximetry (%) 10/14/19 08:42 Temperature 97.3 F L Pulse Rate 66 Respiratory 18 Rate Blood Pressure 112/64 O2 Sat by Pulse Oximetry (%) 10/14/19 09:25 lab pending Assessment: 10/14/19 09:25 opiate withdrawal Plan: methadone regiment
[2019-10-14] MEDS ORDERED: METHADONE HCL 10 MG TABLET (FOR DETOX USE ONLY) ONE (09:30)
[2019-10-14] MEDS ORDERED: METHADONE HCL 5 MG TABLET (FOR DETOX USE ONLY) ONE (09:30)
[2019-10-14] MEDS ORDERED: METHADONE (DETOX) 20 MG, METHADONE (DETOX) 5 MG PO ONE (10:00)
[2019-10-14] MEDS: PRENATAL VITAMINS W/ FOLIC ACID TABLET (FP) PO SCH (10:07)
[2019-10-14] MEDS: NICOTINE 7 MG/24 HOURS TOPICAL PATCH TD SCH (10:08)
[2019-10-14 12:07] LABS: HEMATOCRIT 39.7 % (35.4-49); HEMOGLOBIN 12.8 GM/dL (11.7-16.9); MCHC 32.3 g/dl (32.0-35.9); MEAN CELL VOLUME 89.8 fl (80-96); MEAN PLT VOLUME 8.4 fl (7.5-11.1); PLATELET COUNT 203 K/MM3 (134-434); RBC 4.42 M/mm3 (4.00-5.60); RDW 14.3 % (11.9-15.9); WHITE BLOOD COUNT 4.6 K/mm3 (4.0-10.0)
[2019-10-14 12:17] LABS: ALBUMIN 3.8 g/dl (3.4-5.0); BILIRUBIN,TOTAL 0.7 mg/dL (0.2-1); BLOOD UREA NITROGEN 19.5 mg/dL (7-18); CALCIUM 8.8 mg/dL (8.5-10.1); CREATININE 1.2 mg/dL (0.55-1.3); POTASSIUM 4.6 mmol/L (3.5-5.1); TOT PROT 7.6 g/dl (6.4-8.2)
[2019-10-14] MEDS ORDERED: PATIENT'S OWN MEDICATION (NON-FORMULARY) (Pravastatin Sodium 20 MG) PO SCH (22:00)
[2019-10-14] MEDS: MELATONIN 5 MG TABLETS PO SCH (22:06)
[2019-10-14] MEDS: THIAMINE HCL 100 MG TABLET (FP) PO SCH (22:06)
[2019-10-14] MEDS: ATORVASTATIN CA 10 MG TABLET (FP) PO SCH (22:06)
[2019-10-15] MEDS: hydrOXYzine PAMOATE 25 MG CAPSULE (FP) PO SCH ×5 (05:42→21:13)
[2019-10-15] MEDS: PRENATAL VITAMINS W/ FOLIC ACID TABLET (FP) PO SCH (09:16)
[2019-10-15] MEDS: GABAPENTIN 300 MG CAPSULE PO SCH ×2 (09:17→21:13)
[2019-10-15] MEDS: ASPIRIN 81 MG CHEWABLE TABLETS PO SCH (09:19)
[2019-10-15] MEDS: TAMSULOSIN HCL 0.4 MG CAP PO SCH (09:19)
[2019-10-15] MEDS: NICOTINE 7 MG/24 HOURS TOPICAL PATCH TD SCH (09:20)
[2019-10-15] MEDS ORDERED: METHADONE HCL 10 MG TABLET (FOR DETOX USE ONLY) PO ONE (10:00)
[2019-10-15 10:13] LABS: PH,URINE 5.5 (5.0-8.0); URINE APPEARANCE CLEAR; URINE BILIRUBIN NEGATIVE (NEGATIVE); URINE COLOR YELLOW; URINE GLUCOSE (UA) NEGATIVE (NEGATIVE); URINE KETONE NEGATIVE (NEGATIVE); URINE LEUK ESTERASE NEGATIVE (NEGATIVE); URINE NITRITE NEGATIVE (NEGATIVE); URINE PROTEIN NEGATIVE (NEGATIVE)
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
--- NOTE | 2019-10-15 10:58 | PN ---
BHS COWS - Scale Resting Pulse: 0= [place] 80 or Below Sweatin= Chills/Flushing Restless Observation: 0= Sits Still Pupil Size: 1= Pupils >than Normal Bone or Joint Aches: 2= Severe Diffuse Aches Runny Nose/ Eye Tearin= None GI Upset > 30mins: 1= Stomach Cramp Tremor Observation of Outstretched Hands: 2= Slight Tremor Visible Yawning Observation: 0= None Anxiety or Irritability: 2=Irritable/Anxious Goose Flesh Skin: 0=Smooth Skin COWS Score: 9 BHS Progress Note (SOAP) Subjective: 59 years old male admitted on 10/13/19 for opiate withdrawal sx management treating with methadone detox regiment feeling ok today requests ensure as nutrition supplement mr mercado aware of gabapentine flomax aspirin and lipitor were resumed Objective: 10/15/19 10:57 Vital Signs - 24 hr 10/14/19 10/14/19 10/14/19 12:22 16:32 21:10 Temperature 97.5 F L 97.5 F L 97.3 F L Pulse Rate 65 74 61 Respiratory 18 18 18 Rate Blood Pressure 126/76 110/72 122/79 O2 Sat by Pulse 97 97 Oximetry (%) 10/15/19 10/15/19 06:45 08:57 Temperature 97.5 F L 97.1 F L Pulse Rate 69 62 Respiratory 16 16 Rate Blood Pressure 115/74 119/72 O2 Sat by Pulse 99 Oximetry (%) Laboratory Tests 10/14/19 10/14/19 10/14/19 07:25 07:25 07:25 WBC 4.6 RBC 4.42 Hgb 12.8 Hct 39.7 MCV 89.8 MCH 29.0 MCHC 32.3 RDW 14.3 Plt Count 203 D MPV 8.4 Sodium Potassium Chloride Carbon Dioxide Anion Gap BUN Creatinine Est GFR (CKD-EPI)AfAm Est GFR (CKD-EPI)NonAf Random Glucose Calcium Total Bilirubin AST ALT Alkaline Phosphatase Total Protein Albumin Urine Color Urine Appearance Urine pH Ur Specific [place] Urine Protein Urine Glucose (UA) Urine Ketones Urine Blood Urine Nitrite Urine Bilirubin Urine Urobilinogen Ur Leukocyte Esterase Syphilis Serology Non-reactive HIV Ag/Ab Combo Qual Negative 10/14/19 10/15/19 07:25 08:15 WBC RBC Hgb Hct MCV MCH MCHC RDW Plt Count MPV Sodium 140 Potassium 4.6 Chloride 105 Carbon Dioxide 30 Anion Gap 4 L BUN 19.5 H Creatinine 1.2 Est GFR (CKD-EPI)AfAm 75.72 Est GFR (CKD-EPI)NonAf 65.33 Random Glucose 75 Calcium 8.8 Total Bilirubin 0.7 AST 26 ALT 31 Alkaline Phosphatase 73 Total Protein 7.6 Albumin 3.8 Urine Color Yellow Urine Appearance Clear Urine pH 5.5 Ur Specific [place] 1.015 Urine Protein Negative Urine Glucose (UA) Negative Urine Ketones Negative Urine Blood Negative Urine Nitrite Negative Urine Bilirubin Negative Urine Urobilinogen 1.0 Ur Leukocyte Esterase Negative Syphilis Serology HIV Ag/Ab Combo Qual 10/15/19 10:58 covid pending Assessment: 10/15/19 10:58 opiate withdrawal Plan: methadone regiment
[2019-10-15] MEDS: MELATONIN 5 MG TABLETS PO SCH (21:13)
[2019-10-15] MEDS: ATORVASTATIN CA 10 MG TABLET (FP) PO SCH (21:13)
[2019-10-15] MEDS: THIAMINE HCL 100 MG TABLET (FP) PO SCH (21:13)
[2019-10-15] MEDS: MIRTAZAPINE 15 MG TABLET (FP) PO SCH (21:13)
[2019-10-16] MEDS: hydrOXYzine PAMOATE 25 MG CAPSULE (FP) PO SCH ×5 (07:09→22:23)
[2019-10-16] MEDS ORDERED: METHADONE HCL 10 MG TABLET (FOR DETOX USE ONLY) ONE (08:40)
[2019-10-16] MEDS ORDERED: METHADONE HCL 5 MG TABLET (FOR DETOX USE ONLY) ONE (08:41)
[2019-10-16] MEDS: ASPIRIN 81 MG CHEWABLE TABLETS PO SCH (09:42)
[2019-10-16] MEDS: GABAPENTIN 300 MG CAPSULE PO SCH ×2 (09:42→22:23)
[2019-10-16] MEDS: TAMSULOSIN HCL 0.4 MG CAP PO SCH (09:42)
[2019-10-16] MEDS: PRENATAL VITAMINS W/ FOLIC ACID TABLET (FP) PO SCH (09:46)
[2019-10-16] MEDS: NICOTINE 7 MG/24 HOURS TOPICAL PATCH TD SCH (09:46)
[2019-10-16] MEDS ORDERED: METHADONE (DETOX) 10 MG, METHADONE (DETOX) 5 MG PO ONE (10:00)
--- NOTE | 2019-10-16 15:34 | PN ---
BHS COWS - Scale Resting Pulse: 0= [place] 80 or Below Sweatin= No chills or Flushing Restless Observation: 0= Sits Still Pupil Size: 0= Normal to Room Light Bone or Joint Aches: 1= Mild Discomfort Runny Nose/ Eye Tearin= Nasal Congestion GI Upset > 30mins: 1= Stomach Cramp Tremor Observation of Outstretched Hands: 1= Tremor [place], Not Seen Yawning Observation: 1= 1-2x During Session Anxiety or Irritability: 2=Irritable/Anxious Goose Flesh Skin: 0=Smooth Skin COWS Score: 7 BHS Progress Note (SOAP) Subjective: alert,irritable,anxious,irritable,pain in the body,back Objective: 10/16/19 15:33 Vital Signs Temperature 96.8 F L 10/16/19 12:32 Pulse Rate 58 L 10/16/19 12:32 Respiratory Rate 18 10/16/19 12:32 Blood Pressure 125/84 10/16/19 12:32 O2 Sat by Pulse Oximetry (%) 100 10/16/19 12:32 Assessment: 10/16/19 15:33 withdrawal symptom Plan: continue detox methadone regimen
[2019-10-16] MEDS: THIAMINE HCL 100 MG TABLET (FP) PO SCH (22:23)
[2019-10-16] MEDS: ATORVASTATIN CA 10 MG TABLET (FP) PO SCH (22:23)
[2019-10-16] MEDS: MIRTAZAPINE 15 MG TABLET (FP) PO SCH (22:23)
[2019-10-16] MEDS: MELATONIN 5 MG TABLETS PO SCH (22:24)
[2019-10-17] MEDS: hydrOXYzine PAMOATE 25 MG CAPSULE (FP) PO SCH ×5 (05:23→21:35)
[2019-10-17] MEDS: TAMSULOSIN HCL 0.4 MG CAP PO SCH (09:55)
[2019-10-17] MEDS: ASPIRIN 81 MG CHEWABLE TABLETS PO SCH (09:55)
[2019-10-17] MEDS: PRENATAL VITAMINS W/ FOLIC ACID TABLET (FP) PO SCH (09:55)
[2019-10-17] MEDS: GABAPENTIN 300 MG CAPSULE PO SCH ×2 (09:55→21:35)
[2019-10-17] MEDS: NICOTINE 7 MG/24 HOURS TOPICAL PATCH TD SCH (09:59)
[2019-10-17] MEDS ORDERED: METHADONE HCL 10 MG TABLET (FOR DETOX USE ONLY) PO ONE (10:00)
--- NOTE | 2019-10-17 13:19 | PN ---
BHS COWS - Scale Resting Pulse: 0= [place] 80 or Below Sweatin= No chills or Flushing Restless Observation: 1= Difficult to Sit Still Pupil Size: 0= Normal to Room Light Bone or Joint Aches: 1= Mild Discomfort Runny Nose/ Eye Tearin= Nasal Congestion GI Upset > 30mins: 1= Stomach Cramp Tremor Observation of Outstretched Hands: 2= Slight Tremor Visible Yawning Observation: 1= 1-2x During Session Anxiety or Irritability: 2=Irritable/Anxious Goose Flesh Skin: 0=Smooth Skin COWS Score: 9 BHS Progress Note (SOAP) Subjective: alert,irritable,anxious,pain in the body ,interrupted sleep Objective: 10/17/19 13:17 Vital Signs Temperature 97.8 F 10/17/19 12:54 Pulse Rate 74 10/17/19 12:54 Respiratory Rate 18 10/17/19 12:54 Blood Pressure 146/83 10/17/19 12:54 O2 Sat by Pulse Oximetry (%) 96 10/17/19 12:54 Assessment: 10/17/19 13:17 withdrawal symptom Plan: continue detox methadone regimen,discharge in am
[2019-10-17] MEDS: MIRTAZAPINE 15 MG TABLET (FP) PO SCH (21:35)
[2019-10-17] MEDS: THIAMINE HCL 100 MG TABLET (FP) PO SCH (21:35)
[2019-10-17] MEDS: ATORVASTATIN CA 10 MG TABLET (FP) PO SCH (21:36)
[2019-10-17] MEDS: MELATONIN 5 MG TABLETS PO SCH (21:40)
[2019-10-18] MEDS: hydrOXYzine PAMOATE 25 MG CAPSULE (FP) PO SCH ×3 (05:20→13:37)
[2019-10-18] MEDS ORDERED: METHADONE HCL 5 MG TABLET (FOR DETOX USE ONLY) PO ONE (06:00)
[2019-10-18 09:27] VITALS: BP 140/81; PULSE 84; TEMP 96.6
[2019-10-18] MEDS: TAMSULOSIN HCL 0.4 MG CAP PO SCH (09:30)
--- NOTE | 2019-10-18 09:38 | DS ---
[facility] Detox Discharge Summary Admission Date: 10/13/19 Discharge Date: 10/18/19 - History Present History: Cocaine Dependence, Opioid Dependence Additional Comments: alert,oriented x 3 ambulation on the unit lung clear bilaterally on auscultation abdomen sot,no distension,no pain detox completed,no withdrawal symptom stable for discharge today follow up with after care program as arrangement total time spending on discharge 35 minutes Pertinent Past History: hypercholesterolemia bph low back pain neuropathy depression - Physical Exam Results Vital Signs: Vital Signs Temperature 96.6 F L 10/18/19 08:47 Pulse Rate 84 10/18/19 08:47 Respiratory Rate 18 10/18/19 08:47 Blood Pressure 140/81 10/18/19 08:47 O2 Sat by Pulse Oximetry (%) 98 10/18/19 06:09 Pertinent Admission Physical Exam Findings: withdrawal signs and symptom Laboratory Last Values WBC 4.6 K/mm3 (4.0-10.0) 10/14/19 07:25 RBC 4.42 M/mm3 (4.00-5.60) 10/14/19 07:25 Hgb 12.8 GM/dL (11.7-16.9) 10/14/19 07:25 Hct 39.7 % (35.4-49) 10/14/19 07:25 MCV 89.8 fl (80-96) 10/14/19 07:25 MCH 29.0 pg (25.7-33.7) 10/14/19 07:25 MCHC 32.3 g/dl (32.0-35.9) 10/14/19 07:25 RDW 14.3 % (11.9-15.9) 10/14/19 07:25 Plt Count 203 K/MM3 (134-434) D 10/14/19 07:25 MPV 8.4 fl (7.5-11.1) 10/14/19 07:25 Sodium 140 mmol/L (136-145) 10/14/19 07:25 Potassium 4.6 mmol/L (3.5-5.1) 10/14/19 07:25 Chloride 105 mmol/L (98-107) 10/14/19 07:25 Carbon Dioxide 30 mmol/L (21-32) 10/14/19 07:25 Anion Gap 4 MMOL/L (8-16) L 10/14/19 07:25 BUN 19.5 mg/dL (7-18) H 10/14/19 07:25 Creatinine 1.2 mg/dL (0.55-1.3) 10/14/19 07:25 Est GFR (CKD-EPI)AfAm 75.72 10/14/19 07:25 Est GFR (CKD-EPI)NonAf 65.33 10/14/19 07:25 Random Glucose 75 mg/dL (74-106) 10/14/19 07:25 Calcium 8.8 mg/dL (8.5-10.1) 10/14/19 07:25 Total Bilirubin 0.7 mg/dL (0.2-1) 10/14/19 07:25 AST 26 U/L (15-37) 10/14/19 07:25 ALT 31 U/L (13-61) 10/14/19 07:25 Alkaline Phosphatase 73 U/L (45-117) 10/14/19 07:25 Total Protein 7.6 g/dl (6.4-8.2) 10/14/19 07:25 Albumin 3.8 g/dl (3.4-5.0) 10/14/19 07:25 Urine Color Yellow 10/15/19 08:15 Urine Appearance Clear 10/15/19 08:15 Urine pH 5.5 (5.0-8.0) 10/15/19 08:15 Ur Specific [place] 1.015 (1.010-1.035) 10/15/19 08:15 Urine Protein Negative (NEGATIVE) 10/15/19 08:15 Urine Glucose (UA) Negative (NEGATIVE) 10/15/19 08:15 Urine Ketones Negative (NEGATIVE) 10/15/19 08:15 Urine Blood Negative (NEGATIVE) 10/15/19 08:15 Urine Nitrite Negative (NEGATIVE) 10/15/19 08:15 Urine Bilirubin Negative (NEGATIVE) 10/15/19 08:15 Urine Urobilinogen 1.0 mg/dL (0.2-1.0) 10/15/19 08:15 Ur Leukocyte Esterase Negative (NEGATIVE) 10/15/19 08:15 Syphilis Serology Non-reactive (NONREACTIVE) 10/14/19 07:25 COVID-19 (OPAL) Not detected (Not Detected) 10/13/19 23:40 HIV Ag/Ab Combo Qual Negative (NEGATIVE) 10/14/19 07:25 Vital Signs Temperature 96.6 F L 10/18/19 08:47 Pulse Rate 84 10/18/19 08:47 Respiratory Rate 18 10/18/19 08:47 Blood Pressure 140/81 10/18/19 08:47 O2 Sat by Pulse Oximetry (%) 98 10/18/19 06:09 - Treatment Hospital Course: Detox Protocol Followed, Detoxed Safely, Responded well, Discharged Condition Good, Rehab Referral Accepted Patient has Accepted a Rehab Referral to: winter - Medication Discharge Medications: Ambulatory Orders Bupropion HCl [Wellbutrin Xl -] 150 mg PO DAILY 01/13/16 Pravastatin Sodium [Pravachol (Nf)] 20 mg PO HS 01/13/16 Valacyclovir HCl [Valtrex -] 500 mg PO DAILY 01/13/16 Mirtazapine [Remeron -] 15 mg PO HS #30 tablet 04/23/19 Aspirin [ASA -] 81 mg PO DAILY #30 tab.chew 06/20/19 Atorvastatin Ca [Lipitor] 10 mg PO HS #30 tablet 06/20/19 Gabapentin [Neurontin] 300 mg PO BID #14 cap 06/20/19 Loratadine [Claritin -] 10 mg PO DAILY #14 tablet 06/20/19 Tamsulosin HCl [Flomax -] 0.4 mg PO DAILY #30 cap.er.24h 06/20/19 - Diagnosis (1) Opioid dependence with withdrawal Current Visit: Yes Status: Acute (2) Chronic lower back pain Current Visit: No Status: Chronic Qualifiers: Back pain laterality: midline Sciatica presence: unspecified whether sciatica present Qualified Code(s): M54.5 - Low back pain; G89.29 - Other chronic pain (3) Cocaine dependence Current Visit: Yes Status: Chronic Qualifiers: Substance use status: uncomplicated Qualified Code(s): F14.20 - Cocaine dependence, uncomplicated (4) Hypercholesterolemia Current Visit: No Status: Chronic (5) Neuropathy Current Visit: No Status: Chronic (6) Nicotine dependence Current Visit: Yes Status: Chronic Qualifiers: Nicotine product type: cigarettes (7) MDD (major depressive disorder) Current Visit: No Status: Ruled-out (8) Hyperlipidemia Current Visit: No Status: Acute (9) BPH (benign prostatic hyperplasia) Current Visit: No Status: Chronic Qualifiers: Lower urinary tract symptom detail: weak urinary stream - AMA Did Patient Leave Against Medical Advice: No
--- NOTE | 2019-10-18 09:38 | PN ---
[facility] COWS - Scale Resting Pulse: 1= FL 81-100 Sweatin= No chills or Flushing Restless Observation: 0= Sits Still Pupil Size: 0= Normal to Room Light Bone or Joint Aches: 0= None Runny Nose/ Eye Tearin= None GI Upset > 30mins: 0= None Tremor Observation of Outstretched Hands: 0= None Yawning Observation: 0= None Anxiety or Irritability: 0= None Goose Flesh Skin: 0=Smooth Skin COWS Score: 1 BHS Progress Note (SOAP) Subjective: alert,no complaint Objective: 10/18/19 09:36 Vital Signs Temperature 96.6 F L 10/18/19 08:47 Pulse Rate 84 10/18/19 08:47 Respiratory Rate 18 10/18/19 08:47 Blood Pressure 140/81 10/18/19 08:47 O2 Sat by Pulse Oximetry (%) 98 10/18/19 06:09 Assessment: 10/18/19 09:36 detox completed,no withdrawal symptom Plan: discharge today,follow up with after care [facility] as arrangement
[2019-10-18] MEDS: GABAPENTIN 300 MG CAPSULE PO SCH (10:03)
[2019-10-18] MEDS: PRENATAL VITAMINS W/ FOLIC ACID TABLET (FP) PO SCH (10:04)
[2019-10-18] MEDS: NICOTINE 7 MG/24 HOURS TOPICAL PATCH TD SCH (10:04)
[2019-10-18] MEDS: ASPIRIN 81 MG CHEWABLE TABLETS PO SCH (10:04)
== END 2019-10-18 11:40 | disposition other institution (70) | DRG 773 ==
LOC: YASAS 13:56 → Y3N 17:27
PROVIDERS: ADMIT Allergy & Immunology; ATTEND Allergy & Immunology
PROC: HZ2ZZZZ Detoxification Services for Substance Abuse Treatment (ICD-10-PCS; principal; 2019-10-13)
DX: F11.23 Opioid dependence with withdrawal (principal); F14.20 Cocaine dependence, uncomplicated; F17.210 Nicotine dependence, cigarettes, uncomplicated; F43.10 Post-traumatic stress disorder, unspecified; G62.9 Polyneuropathy, unspecified; E78.5 Hyperlipidemia, unspecified; E78.00 Pure hypercholesterolemia, unspecified; N40.0 Benign prostatic hyperplasia without lower urinary tract symptoms; Z62.810 Personal history of physical and sexual abuse in childhood; Z98.890 Other specified postprocedural states; Z86.19 Personal history of other infectious and parasitic diseases; Z79.82 Long term (current) use of aspirin; Z56.0 Unemployment, unspecified; Z59.0 Homelessness; Z91.19 Patient's noncompliance with other medical treatment and regimen; Z87.828 Personal history of other (healed) physical injury and trauma
CPT/HCPCS: 36415; 80053; 81003; 85027; 86780; 87389; Q0162; U0003

== ENCOUNTER 2019-10-18 11:53 | Inpatient (IN) | payer OTHER ==
--- NOTE | 2019-10-18 09:40 | HP ---
[facility] Re[facility] Assess/Revision - Admission History Admitted to Rehab from: [facility] Date of Admission to Rehab: 10/18/19 - Findings Detox History & Physical reviewed: Yes Concur with findings: Yes Comments/Additional Findings: transferred from detox to rehab admission as per protocol Inpatient Rehab Admission - Rehab Decision to Admit Inpatient rehab admission?: Yes - Initial Determination Are CD services needed?: Yes Free of communicable disease: Yes Not in need of hospitalization: Yes - Rehab Admission Criteria Previous failed treatment: Yes Poor recovery environment: Yes Comorbidities: Yes Lacks judgement: Yes Patient is meeting Inpatient Rehab admission criteria:: Yes
[~2019-10-18 11:53] MED LIST: ACETAMINOPHEN 325 MG TABLET (FP) PO PRN; IBUPROFEN 400 MG TABLET (FP) PO PRN; LOPERAMIDE HCL 2 MG CAPSULE PO PRN; MAG HYDROX/AL HYDROX/SIMETH 30 ML UNIT-DOSE CUP PO PRN; MAGNESIUM CITRATE 300 ML BOTTLE PO PRN; MAGNESIUM HYDROX 2400MG/30ML ORAL SUSPENSION 30 ML CUP PO PRN; NICOTINE POLACRILEX 2 MG GUM BUC PRN; P-EPHED 60MG/TRIPROLIDI 2.5MG TABLET PO PRN; guaiFENesin 200 MG/10 ML 10 ML UNIT-DOSE CUPS PO PRN
[2019-10-18] MEDS: PRENATAL VITAMINS W/ FOLIC ACID TABLET (FP) PO SCH (14:31)
[2019-10-18] MEDS: hydrOXYzine PAMOATE 25 MG CAPSULE (FP) PO SCH ×4 (14:31→21:04)
[2019-10-18] MEDS: NICOTINE 7 MG/24 HOURS TOPICAL PATCH TD SCH (14:31)
[2019-10-18] MEDS ORDERED: MASKS NR ONE (14:33)
[2019-10-18] MEDS: MELATONIN 5 MG TABLETS PO SCH (21:05)
[2019-10-18] MEDS: THIAMINE HCL 100 MG TABLET (FP) PO SCH (21:05)
[2019-10-18] MEDS: GABAPENTIN 300 MG CAPSULE PO SCH (21:05)
[2019-10-18] MEDS: ATORVASTATIN CA 10 MG TABLET (FP) PO SCH (21:05)
[2019-10-18] MEDS ORDERED: MIRTAZAPINE 15 MG TABLET (FP) PO SCH (22:00)
[2019-10-19] MEDS: hydrOXYzine PAMOATE 25 MG CAPSULE (FP) PO SCH ×5 (06:13→21:48)
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
[2019-10-19] MEDS: GABAPENTIN 300 MG CAPSULE PO SCH ×2 (10:22→21:48)
[2019-10-19] MEDS: TAMSULOSIN HCL 0.4 MG CAP PO SCH (10:22)
[2019-10-19] MEDS: ASPIRIN 81 MG CHEWABLE TABLETS PO SCH (10:22)
[2019-10-19] MEDS: NICOTINE 7 MG/24 HOURS TOPICAL PATCH TD SCH (10:22)
[2019-10-19] MEDS: PRENATAL VITAMINS W/ FOLIC ACID TABLET (FP) PO SCH (10:22)
[2019-10-19] MEDS: LORATADINE 10 MG TABLET PO SCH (10:23)
--- NOTE | 2019-10-19 11:17 | PN ---
[facility] Progress Note Note: Patient evaluated for c/o nasal congestion and tearing of eyes. Patient denies cough, sore throat and fever. He reports hx of allergies. Vital Signs Temperature 98.2 F 10/19/19 07:11 Pulse Rate 56 L 10/19/19 07:11 Respiratory Rate 18 10/19/19 07:11 Blood Pressure 117/78 10/19/19 07:11 O2 Sat by Pulse Oximetry (%) 99 10/19/19 07:11 PE alert and oriented x 3 skin warm and dry EOMS intact bl, no redness of sclera/conjuctivae noted, no tears present +post nasal drip A/P: allergic rhinitis patient to start claritin 10mg po daily monitor clinically
[2019-10-19] MEDS: MELATONIN 5 MG TABLETS PO SCH (21:47)
[2019-10-19] MEDS: ATORVASTATIN CA 10 MG TABLET (FP) PO SCH (21:48)
[2019-10-19] MEDS: MIRTAZAPINE 30 MG TABLET PO SCH (21:48)
[2019-10-19] MEDS: THIAMINE HCL 100 MG TABLET (FP) PO SCH (21:48)
[2019-10-20] MEDS: hydrOXYzine PAMOATE 25 MG CAPSULE (FP) PO SCH ×5 (06:10→21:04)
[2019-10-20] MEDS: TAMSULOSIN HCL 0.4 MG CAP PO SCH (07:34)
[2019-10-20] MEDS: NICOTINE 7 MG/24 HOURS TOPICAL PATCH TD SCH (10:09)
[2019-10-20] MEDS: PRENATAL VITAMINS W/ FOLIC ACID TABLET (FP) PO SCH (10:09)
[2019-10-20] MEDS: ASPIRIN 81 MG CHEWABLE TABLETS PO SCH (10:10)
[2019-10-20] MEDS: LORATADINE 10 MG TABLET PO SCH (10:10)
[2019-10-20] MEDS: GABAPENTIN 300 MG CAPSULE PO SCH ×2 (10:10→21:04)
[2019-10-20] MEDS ORDERED: PT OWN MED DRAWER 7, Y5N ONE (10:21)
[2019-10-20] MEDS: ATORVASTATIN CA 10 MG TABLET (FP) PO SCH (21:04)
[2019-10-20] MEDS: MELATONIN 5 MG TABLETS PO SCH (21:04)
[2019-10-20] MEDS: THIAMINE HCL 100 MG TABLET (FP) PO SCH (21:04)
[2019-10-20] MEDS: MIRTAZAPINE 30 MG TABLET PO SCH (21:04)
[2019-10-21] MEDS: hydrOXYzine PAMOATE 25 MG CAPSULE (FP) PO SCH ×5 (06:19→21:46)
[2019-10-21] MEDS: TAMSULOSIN HCL 0.4 MG CAP PO SCH (07:49)
[2019-10-21] MEDS: GABAPENTIN 300 MG CAPSULE PO SCH ×2 (09:59→21:46)
[2019-10-21] MEDS: ASPIRIN 81 MG CHEWABLE TABLETS PO SCH (09:59)
[2019-10-21] MEDS: PRENATAL VITAMINS W/ FOLIC ACID TABLET (FP) PO SCH (09:59)
[2019-10-21] MEDS: NICOTINE 7 MG/24 HOURS TOPICAL PATCH TD SCH (09:59)
[2019-10-21] MEDS: LORATADINE 10 MG TABLET PO SCH (10:00)
[2019-10-21] MEDS ORDERED: PT OWN MED DRAWER 7, Y5N ONE (10:20)
[2019-10-21] MEDS: ATORVASTATIN CA 10 MG TABLET (FP) PO SCH (21:46)
[2019-10-21] MEDS: MELATONIN 5 MG TABLETS PO SCH (21:46)
[2019-10-21] MEDS: MIRTAZAPINE 30 MG TABLET PO SCH (21:46)
[2019-10-21] MEDS: THIAMINE HCL 100 MG TABLET (FP) PO SCH (21:46)
[2019-10-22] MEDS: hydrOXYzine PAMOATE 25 MG CAPSULE (FP) PO SCH ×5 (06:04→21:03)
[2019-10-22] MEDS: TAMSULOSIN HCL 0.4 MG CAP PO SCH (07:50)
[2019-10-22] MEDS: NICOTINE 7 MG/24 HOURS TOPICAL PATCH TD SCH (10:55)
[2019-10-22] MEDS: GABAPENTIN 300 MG CAPSULE PO SCH ×2 (10:57→21:02)
[2019-10-22] MEDS: LORATADINE 10 MG TABLET PO SCH (10:58)
[2019-10-22] MEDS: ASPIRIN 81 MG CHEWABLE TABLETS PO SCH (10:58)
[2019-10-22] MEDS: PRENATAL VITAMINS W/ FOLIC ACID TABLET (FP) PO SCH (10:58)
[2019-10-22] MEDS: ATORVASTATIN CA 10 MG TABLET (FP) PO SCH (21:02)
[2019-10-22] MEDS: MIRTAZAPINE 30 MG TABLET PO SCH (21:03)
[2019-10-22] MEDS: MELATONIN 5 MG TABLETS PO SCH (21:03)
[2019-10-22] MEDS: THIAMINE HCL 100 MG TABLET (FP) PO SCH (21:03)
[2019-10-23] MEDS: hydrOXYzine PAMOATE 25 MG CAPSULE (FP) PO SCH ×2 (06:18→09:41)
[2019-10-23] MEDS: TAMSULOSIN HCL 0.4 MG CAP PO SCH (07:30)
[2019-10-23] MEDS: ASPIRIN 81 MG CHEWABLE TABLETS PO SCH (09:41)
[2019-10-23] MEDS: PRENATAL VITAMINS W/ FOLIC ACID TABLET (FP) PO SCH (09:41)
[2019-10-23] MEDS: NICOTINE 7 MG/24 HOURS TOPICAL PATCH TD SCH (09:41)
[2019-10-23] MEDS: GABAPENTIN 300 MG CAPSULE PO SCH ×2 (09:41→21:38)
[2019-10-23] MEDS: LORATADINE 10 MG TABLET PO SCH (09:41)
--- NOTE | 2019-10-23 11:41 | PN ---
[facility] Progress Note Note: Patient is scheduled for discharge tomorrow. Scripts for 30 days supply of medications(Wellbutrin XL 150 mg/day, Remeron 30 mg/hs) will be electronically transmitted to [facility], [address] [place] [id number]
[2019-10-23] MEDS: hydrOXYzine PAMOATE 25 MG CAPSULE (FP) PO PRN ×3 (15:45→21:39)
[2019-10-23] MEDS: MELATONIN 5 MG TABLETS PO SCH (21:38)
[2019-10-23] MEDS: THIAMINE HCL 100 MG TABLET (FP) PO SCH (21:38)
[2019-10-23] MEDS: ATORVASTATIN CA 10 MG TABLET (FP) PO SCH (21:38)
[2019-10-23] MEDS: MIRTAZAPINE 30 MG TABLET PO SCH (21:38)
[2019-10-24 06:37] VITALS: BP 125/77; PULSE 78; TEMP 97.7
[2019-10-24] MEDS: TAMSULOSIN HCL 0.4 MG CAP PO SCH (07:52)
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
[2019-10-24] MEDS: PRENATAL VITAMINS W/ FOLIC ACID TABLET (FP) PO SCH (09:20)
[2019-10-24] MEDS: GABAPENTIN 300 MG CAPSULE PO SCH (09:20)
[2019-10-24] MEDS: ASPIRIN 81 MG CHEWABLE TABLETS PO SCH (09:21)
[2019-10-24] MEDS: LORATADINE 10 MG TABLET PO SCH (09:21)
[2019-10-24] MEDS: NICOTINE 7 MG/24 HOURS TOPICAL PATCH TD SCH (09:22)
== END 2019-10-24 09:27 | disposition home or self-care (01) | DRG 772 ==
LOC: YASAS 11:53 → Y3W 11:57
PROVIDERS: ADMIT Allergy & Immunology; ATTEND Allergy & Immunology
PROC: HZ42ZZZ Group Counseling for Substance Abuse Treatment, Cognitive-Behavioral (ICD-10-PCS; principal; 2019-10-18)
DX: F11.20 Opioid dependence, uncomplicated (principal); F14.20 Cocaine dependence, uncomplicated; F19.282 Other psychoactive substance dependence with psychoactive substance-induced sleep disorder; F32.9 Major depressive disorder, single episode, unspecified; F43.10 Post-traumatic stress disorder, unspecified; E78.5 Hyperlipidemia, unspecified; G62.9 Polyneuropathy, unspecified; M12.9 Arthropathy, unspecified; M54.5 Low back pain; G89.29 Other chronic pain; J30.9 Allergic rhinitis, unspecified; N40.1 Benign prostatic hyperplasia with lower urinary tract symptoms; R39.12 Poor urinary stream; Z62.810 Personal history of physical and sexual abuse in childhood; Z86.2 Personal history of diseases of the blood and blood-forming organs and certain disorders involving the immune mechanism; Z87.438 Personal history of other diseases of male genital organs; Z86.19 Personal history of other infectious and parasitic diseases; Z87.828 Personal history of other (healed) physical injury and trauma; Z98.890 Other specified postprocedural states; Z56.0 Unemployment, unspecified; Z59.0 Homelessness

== ENCOUNTER 2021-02-27 09:53 | Inpatient (IN) | payer OTHER ==
[2021-02-27] MEDS ORDERED: IBUPROFEN 400 MG TABLET (FP) PO PRN (10:14)
[2021-02-27] MEDS ORDERED: ACETAMINOPHEN 325 MG TABLET (FP) PO PRN ×2 (10:14)
[2021-02-27] MEDS ORDERED: NICOTINE 10 MG CARTRIDGE (INHALER) IH PRN (10:14)
[2021-02-27] MEDS ORDERED: MAGNESIUM HYDROX 2400MG/30ML ORAL SUSPENSION 30 ML CUP PO PRN (10:14)
[2021-02-27] MEDS ORDERED: ONDANSETRON *ODT* 4 MG TABLET SL PRN (10:14)
[2021-02-27] MEDS ORDERED: MAGNESIUM CITRATE 300 ML BOTTLE PO PRN (10:14)
[2021-02-27] MEDS ORDERED: BISMUTH SUBSALICYLATE 262 MG/15 ML BTL PO PRN (10:14)
[2021-02-27] MEDS ORDERED: MENTHOL/PHENOL 1 EACH UD MM PRN (10:14)
[2021-02-27] MEDS ORDERED: MAG HYDROX/AL HYDROX/SIMETH 30 ML UNIT-DOSE CUP PO PRN (10:14)
[2021-02-27 10:42] VITALS: BMI 31.8
[2021-02-27] MEDS: PRENATAL VITAMINS W/ FOLIC ACID TABLET (FP) PO SCH (14:03)
[2021-02-27] MEDS: hydrOXYzine PAMOATE 25 MG CAPSULE (FP) PO SCH ×3 (14:04→22:43)
[2021-02-27 18:36] LABS: HEMATOCRIT 38.8 % (35.4-49); HEMOGLOBIN 12.8 GM/dL (11.7-16.9); MCH 28.5 pg (25.7-33.7); MCHC 32.9 g/dl (32.0-35.9); MEAN CELL VOLUME 86.7 fl (80-96); MEAN PLT VOLUME 7.2 fl (7.5-11.1); PLATELET COUNT 293 10^3/uL (134-434); RBC 4.47 M/mm3 (4.00-5.60); RDW 14.7 % (11.9-15.9); WHITE BLOOD COUNT 7.6 K/mm3 (4.0-10.0)
[2021-02-27 18:42] LABS: BLOOD UREA NITROGEN 20.4 mg/dL (7-18); CALCIUM 9.1 mg/dL (8.5-10.1)
[2021-02-27 18:45] LABS: CREATININE 1.3 mg/dL (0.55-1.3)
[2021-02-27 18:47] LABS: BILIRUBIN,TOTAL 1.5 mg/dL (0.2-1); TOT PROT 7.8 g/dl (6.4-8.2)
[2021-02-27] MEDS ORDERED: MELATONIN 5 MG TABLETS PO SCH (22:00)
[2021-02-27] MEDS: ATORVASTATIN CA 10 MG TABLET (FP) PO SCH (22:43)
[2021-02-27] MEDS: THIAMINE HCL 100 MG TABLET (FP) PO SCH (22:43)
[2021-02-28] MEDS: hydrOXYzine PAMOATE 25 MG CAPSULE (FP) PO SCH ×5 (06:38→22:27)
[2021-02-28] MEDS: TAMSULOSIN HCL 0.4 MG CAP PO SCH (10:32)
[2021-02-28] MEDS: PRENATAL VITAMINS W/ FOLIC ACID TABLET (FP) PO SCH (10:32)
[2021-02-28] MEDS: ASPIRIN 81 MG CHEWABLE TABLETS PO SCH (10:32)
[2021-02-28] MEDS: LORATADINE 10 MG TABLET PO SCH (10:32)
[2021-02-28] MEDS: MIRTAZAPINE 15 MG TABLET (FP) PO SCH (22:27)
[2021-02-28] MEDS: THIAMINE HCL 100 MG TABLET (FP) PO SCH (22:27)
[2021-02-28] MEDS: METHOCARBAMOL 500 MG TABLET PO PRN (22:28)
[2021-02-28] MEDS: ATORVASTATIN CA 10 MG TABLET (FP) PO SCH (22:28)
[2021-03-01] MEDS: hydrOXYzine PAMOATE 25 MG CAPSULE (FP) PO SCH ×5 (07:01→22:31)
[2021-03-01] MEDS: TAMSULOSIN HCL 0.4 MG CAP PO SCH (10:08)
[2021-03-01] MEDS: LORATADINE 10 MG TABLET PO SCH (10:08)
[2021-03-01] MEDS: PRENATAL VITAMINS W/ FOLIC ACID TABLET (FP) PO SCH (10:08)
[2021-03-01] MEDS: ASPIRIN 81 MG CHEWABLE TABLETS PO SCH (10:08)
[2021-03-01] MEDS ORDERED: diazePAM 5 MG TABLET PO PRN (11:43)
[2021-03-01] MEDS: diazePAM 5 MG TABLET PO SCH ×2 (13:27→22:31)
[2021-03-01] MEDS: ATORVASTATIN CA 10 MG TABLET (FP) PO SCH (22:30)
[2021-03-01] MEDS: THIAMINE HCL 100 MG TABLET (FP) PO SCH (22:30)
[2021-03-01] MEDS: MIRTAZAPINE 15 MG TABLET (FP) PO SCH (22:31)
[2021-03-01] MEDS: METHOCARBAMOL 500 MG TABLET PO PRN (22:32)
[2021-03-02] MEDS ORDERED: diazePAM 5 MG TABLET PO SCH (06:00)
[2021-03-02] MEDS: hydrOXYzine PAMOATE 25 MG CAPSULE (FP) PO SCH ×5 (06:58→22:07)
[2021-03-02] MEDS: PRENATAL VITAMINS W/ FOLIC ACID TABLET (FP) PO SCH (10:19)
[2021-03-02] MEDS: TAMSULOSIN HCL 0.4 MG CAP PO SCH (10:20)
[2021-03-02] MEDS: ASPIRIN 81 MG CHEWABLE TABLETS PO SCH (10:20)
[2021-03-02] MEDS: LORATADINE 10 MG TABLET PO SCH (10:20)
[2021-03-02 10:28] LABS: BILIRUBIN,TOTAL 0.2 mg/dL (0.2-1)
[2021-03-02] MEDS: FLUTICASONE PROP 0.05% 16 GM NASAL SPRAY NS SCH (15:38)
[2021-03-02] MEDS: THIAMINE HCL 100 MG TABLET (FP) PO SCH (22:07)
[2021-03-02] MEDS: ATORVASTATIN CA 10 MG TABLET (FP) PO SCH (22:07)
[2021-03-02] MEDS: MIRTAZAPINE 15 MG TABLET (FP) PO SCH (22:08)
[2021-03-03] MEDS ORDERED: diazePAM 5 MG TABLET PO ONE (06:00)
[2021-03-03] MEDS: hydrOXYzine PAMOATE 25 MG CAPSULE (FP) PO SCH ×2 (07:04→10:16)
[2021-03-03] MEDS: PRENATAL VITAMINS W/ FOLIC ACID TABLET (FP) PO SCH (10:15)
[2021-03-03] MEDS: ASPIRIN 81 MG CHEWABLE TABLETS PO SCH (10:16)
[2021-03-03] MEDS: LORATADINE 10 MG TABLET PO SCH (10:16)
[2021-03-03] MEDS: TAMSULOSIN HCL 0.4 MG CAP PO SCH (10:16)
[2021-03-03] MEDS: FLUTICASONE PROP 0.05% 16 GM NASAL SPRAY NS SCH (10:17)
[2021-03-03 12:42] VITALS: BP 138/89; PULSE 76; TEMP 98
== END 2021-03-03 14:10 | disposition home or self-care (01) | DRG 773 ==
LOC: YASAS 09:53 → UNDOADMIN 10:35 → Y3N 10:35
PROVIDERS: ADMIT Allergy & Immunology; ATTEND Allergy & Immunology
PROC: HZ2ZZZZ Detoxification Services for Substance Abuse Treatment (ICD-10-PCS; principal; 2021-02-27)
DX: F11.23 Opioid dependence with withdrawal (principal); F10.230 Alcohol dependence with withdrawal, uncomplicated; F14.20 Cocaine dependence, uncomplicated; F12.20 Cannabis dependence, uncomplicated; F17.210 Nicotine dependence, cigarettes, uncomplicated; F19.24 Other psychoactive substance dependence with psychoactive substance-induced mood disorder; F19.282 Other psychoactive substance dependence with psychoactive substance-induced sleep disorder; F32.A Depression, unspecified; F43.10 Post-traumatic stress disorder, unspecified; E78.5 Hyperlipidemia, unspecified; N40.0 Benign prostatic hyperplasia without lower urinary tract symptoms; R79.89 Other specified abnormal findings of blood chemistry; E80.6 Other disorders of bilirubin metabolism; R74.01 Elevation of levels of liver transaminase levels; M54.59 Other low back pain; G89.29 Other chronic pain; G47.00 Insomnia, unspecified; E86.0 Dehydration; Z86.19 Personal history of other infectious and parasitic diseases; Z56.0 Unemployment, unspecified; Z59.02 Unsheltered homelessness
CPT/HCPCS: 36415; 80053; 82247; 84450; 85027; 86593; 86780; C9803; U0003; U0005

== ENCOUNTER 2021-08-01 10:26 | Inpatient (IN) | payer OTHER ==
[2021-08-01 11:14] VITALS: BMI 34.4
[2021-08-01] MEDS ORDERED: LOPERAMIDE HCL 2 MG CAPSULE PO PRN (12:23)
[2021-08-01] MEDS ORDERED: MAGNESIUM HYDROX 2400MG/30ML ORAL SUSPENSION 30 ML CUP PO PRN (12:23)
[2021-08-01] MEDS ORDERED: BENZOCAINE/MENTHOL (CHLORASEPTIC ) LOZENGE MM PRN (12:23)
[2021-08-01] MEDS ORDERED: NICOTINE 10 MG CARTRIDGE (INHALER) IH PRN (12:23)
[2021-08-01] MEDS ORDERED: MAG HYDROX/AL HYDROX/SIMETH 30 ML UNIT-DOSE CUP PO PRN (12:23)
[2021-08-01] MEDS ORDERED: DICYCLOMINE HCL 10 MG CAPSULE PO PRN (12:23)
[2021-08-01] MEDS ORDERED: BISMUTH SUBSALICYLATE 524 MG/30 ML PO PRN (12:23)
[2021-08-01] MEDS ORDERED: ONDANSETRON *ODT* 4 MG TABLET SL PRN (12:23)
[2021-08-01] MEDS ORDERED: ACETAMINOPHEN 325 MG TABLET (FP) PO PRN ×2 (12:23)
[2021-08-01] MEDS ORDERED: MAGNESIUM CITRATE 300 ML BOTTLE PO PRN (12:23)
[2021-08-01] MEDS: hydrOXYzine PAMOATE 25 MG CAPSULE (FP) PO SCH ×3 (14:35→22:05)
[2021-08-01] MEDS: TAMSULOSIN HCL 0.4 MG CAP PO SCH (14:35)
[2021-08-01] MEDS: ATORVASTATIN CA 10 MG TABLET (FP) PO SCH (22:05)
[2021-08-01] MEDS: GABAPENTIN 300 MG CAPSULE PO SCH (22:05)
[2021-08-01] MEDS: THIAMINE HCL 100 MG TABLET (FP) PO SCH (22:05)
[2021-08-01] MEDS: MELATONIN 5 MG TABLETS PO SCH (22:06)
[2021-08-01] MEDS: METHOCARBAMOL 500 MG TABLET PO PRN (22:07)
[2021-08-02] MEDS: hydrOXYzine PAMOATE 25 MG CAPSULE (FP) PO SCH ×5 (07:25→22:12)
[2021-08-02] MEDS: GABAPENTIN 300 MG CAPSULE PO SCH ×2 (10:36→22:11)
[2021-08-02] MEDS: PRENATAL VITAMINS W/ FOLIC ACID TABLET (FP) PO SCH (10:36)
[2021-08-02] MEDS: ASPIRIN 81 MG CHEWABLE TABLETS PO SCH (10:36)
[2021-08-02] MEDS: TAMSULOSIN HCL 0.4 MG CAP PO SCH (10:36)
[2021-08-02] MEDS ORDERED: cloNIDine HCL 0.1 MG TABLET PO PRN (12:53)
[2021-08-02] MEDS ORDERED: methaDONE HCL 10 MG TABLET (FOR DETOX USE ONLY) PO ONE (13:00)
[2021-08-02] MEDS: ATORVASTATIN CA 10 MG TABLET (FP) PO SCH (22:11)
[2021-08-02] MEDS: MIRTAZAPINE 15 MG TABLET (FP) PO SCH (22:11)
[2021-08-02] MEDS: MELATONIN 5 MG TABLETS PO SCH (22:11)
[2021-08-02] MEDS: THIAMINE HCL 100 MG TABLET (FP) PO SCH (22:12)
[2021-08-02] MEDS: METHOCARBAMOL 500 MG TABLET PO PRN (22:13)
[2021-08-03] MEDS: hydrOXYzine PAMOATE 25 MG CAPSULE (FP) PO SCH ×5 (06:17→22:47)
[2021-08-03] MEDS ORDERED: methaDONE HCL 10 MG TABLET (FOR DETOX USE ONLY) ONE (08:47)
[2021-08-03] MEDS: ASPIRIN 81 MG CHEWABLE TABLETS PO SCH (10:26)
[2021-08-03] MEDS: PRENATAL VITAMINS W/ FOLIC ACID TABLET (FP) PO SCH (10:26)
[2021-08-03] MEDS: TAMSULOSIN HCL 0.4 MG CAP PO SCH (10:26)
[2021-08-03] MEDS: GABAPENTIN 300 MG CAPSULE PO SCH ×2 (10:26→22:46)
[2021-08-03] MEDS: METHOCARBAMOL 500 MG TABLET PO PRN (10:28)
[2021-08-03 11:17] LABS: HEMATOCRIT 37.2 % (35.4-49); HEMOGLOBIN 12.1 GM/dL (11.7-16.9); MCH 28.3 pg (25.7-33.7); MCHC 32.4 g/dl (32.0-35.9); MEAN CELL VOLUME 87.2 fl (80-96); MEAN PLT VOLUME 7.7 fl (7.5-11.1); PLATELET COUNT 244 10^3/uL (134-434); RBC 4.26 M/mm3 (4.00-5.60); RDW 14.5 % (11.9-15.9); WHITE BLOOD COUNT 5.3 K/mm3 (4.0-10.0)
[2021-08-03 11:51] LABS: ALBUMIN 3.2 g/dl (3.4-5.0); BLOOD UREA NITROGEN 14.5 mg/dL (7-18)
[2021-08-03 11:52] LABS: CALCIUM 8.8 mg/dL (8.5-10.1)
[2021-08-03 11:54] LABS: CREATININE 1.1 mg/dL (0.55-1.3)
[2021-08-03 11:55] LABS: TOT PROT 6.4 g/dl (6.4-8.2)
[2021-08-03 11:56] LABS: BILIRUBIN,TOTAL 0.2 mg/dL (0.2-1)
[2021-08-03] MEDS: ATORVASTATIN CA 10 MG TABLET (FP) PO SCH (22:46)
[2021-08-03] MEDS: MIRTAZAPINE 15 MG TABLET (FP) PO SCH (22:46)
[2021-08-03] MEDS: MELATONIN 5 MG TABLETS PO SCH (22:47)
[2021-08-03] MEDS: THIAMINE HCL 100 MG TABLET (FP) PO SCH (22:47)
[2021-08-04] MEDS: hydrOXYzine PAMOATE 25 MG CAPSULE (FP) PO SCH ×5 (06:55→22:16)
[2021-08-04] MEDS ORDERED: methaDONE HCL 10 MG TABLET (FOR DETOX USE ONLY) PO ONE (10:00)
[2021-08-04] MEDS: ASPIRIN 81 MG CHEWABLE TABLETS PO SCH (10:26)
[2021-08-04] MEDS: TAMSULOSIN HCL 0.4 MG CAP PO SCH (10:26)
[2021-08-04] MEDS: PRENATAL VITAMINS W/ FOLIC ACID TABLET (FP) PO SCH (10:26)
[2021-08-04] MEDS: GABAPENTIN 300 MG CAPSULE PO SCH ×2 (10:27→22:16)
[2021-08-04 16:17] LABS: SARS-CoV-2 NAA Not Detected (Not Detected)
[2021-08-04] MEDS: MIRTAZAPINE 15 MG TABLET (FP) PO SCH (22:15)
[2021-08-04] MEDS: THIAMINE HCL 100 MG TABLET (FP) PO SCH (22:16)
[2021-08-04] MEDS: MELATONIN 5 MG TABLETS PO SCH (22:16)
[2021-08-04] MEDS: ATORVASTATIN CA 10 MG TABLET (FP) PO SCH (22:16)
[2021-08-05] MEDS: hydrOXYzine PAMOATE 25 MG CAPSULE (FP) PO SCH ×2 (05:10→10:20)
[2021-08-05] MEDS: TAMSULOSIN HCL 0.4 MG CAP PO SCH (10:20)
[2021-08-05] MEDS: GABAPENTIN 300 MG CAPSULE PO SCH (10:20)
[2021-08-05] MEDS: PRENATAL VITAMINS W/ FOLIC ACID TABLET (FP) PO SCH (10:20)
[2021-08-05] MEDS: ASPIRIN 81 MG CHEWABLE TABLETS PO SCH (10:20)
[2021-08-05 13:03] VITALS: BP 130/80; PULSE 81; TEMP 98.9
== END 2021-08-05 13:11 | disposition other institution (70) | DRG 773 ==
LOC: YASAS 10:26 → UNDOADMIN 12:43 → Y3N 12:43
PROVIDERS: ADMIT Surgery; ATTEND Surgery
PROC: HZ2ZZZZ Detoxification Services for Substance Abuse Treatment (ICD-10-PCS; principal; 2021-08-01)
DX: F11.23 Opioid dependence with withdrawal (principal); F10.230 Alcohol dependence with withdrawal, uncomplicated; F14.20 Cocaine dependence, uncomplicated; F17.210 Nicotine dependence, cigarettes, uncomplicated; F43.10 Post-traumatic stress disorder, unspecified; F19.282 Other psychoactive substance dependence with psychoactive substance-induced sleep disorder; N40.0 Benign prostatic hyperplasia without lower urinary tract symptoms; R03.0 Elevated blood-pressure reading, without diagnosis of hypertension; M19.90 Unspecified osteoarthritis, unspecified site; G62.9 Polyneuropathy, unspecified; M54.59 Other low back pain; G89.29 Other chronic pain; R07.0 Pain in throat; Z62.810 Personal history of physical and sexual abuse in childhood; Z87.438 Personal history of other diseases of male genital organs; Z86.19 Personal history of other infectious and parasitic diseases; Z56.0 Unemployment, unspecified; Z59.00 Homelessness unspecified
CPT/HCPCS: 36415; 80053; 82962; 85027; 86593; 86780; 87811; C9803-CS; U0003; U0005

== ENCOUNTER 2021-08-05 13:26 | Inpatient (IN) | payer OTHER ==
[2021-08-05] MEDS ORDERED: MAG HYDROX/AL HYDROX/SIMETH 30 ML UNIT-DOSE CUP PO PRN (14:34)
[2021-08-05] MEDS ORDERED: BENZOCAINE/MENTHOL (CHLORASEPTIC ) LOZENGE MM PRN (14:34)
[2021-08-05] MEDS ORDERED: ACETAMINOPHEN 325 MG TABLET (FP) PO PRN (14:34)
[2021-08-05] MEDS ORDERED: MAGNESIUM HYDROX 2400MG/30ML ORAL SUSPENSION 30 ML CUP PO PRN (14:34)
[2021-08-05] MEDS ORDERED: IBUPROFEN 400 MG TABLET (FP) PO PRN (14:34)
[2021-08-05] MEDS ORDERED: LOPERAMIDE HCL 2 MG CAPSULE PO PRN (14:34)
[2021-08-05] MEDS ORDERED: P-EPHED 60MG/TRIPROLIDI 2.5MG TABLET PO PRN (14:34)
[2021-08-05] MEDS ORDERED: NICOTINE 10 MG CARTRIDGE (INHALER) IH PRN (14:34)
[2021-08-05] MEDS ORDERED: guaiFENesin 200 MG/10 ML 10 ML UNIT-DOSE CUPS PO PRN (14:34)
[2021-08-05] MEDS ORDERED: MAGNESIUM CITRATE 300 ML BOTTLE PO PRN (14:34)
[2021-08-05] MEDS ORDERED: hydrOXYzine PAMOATE 25 MG CAPSULE (FP) PO PRN (14:34)
[2021-08-05] MEDS ORDERED: CARBAMIDE PEROXIDE 6.5% OTIC 15 ML BOTTLE AU SCH (14:49)
[2021-08-05] MEDS: THIAMINE HCL 100 MG TABLET (FP) PO SCH (21:34)
[2021-08-05] MEDS: MELATONIN 5 MG TABLETS PO SCH (21:34)
[2021-08-05] MEDS: ATORVASTATIN CA 10 MG TABLET (FP) PO SCH (21:35)
[2021-08-05] MEDS: MIRTAZAPINE 30 MG TABLET PO SCH (21:35)
[2021-08-06] MEDS: PRENATAL VITAMINS W/ FOLIC ACID TABLET (FP) PO SCH (09:55)
[2021-08-06] MEDS: ASPIRIN 81 MG CHEWABLE TABLETS PO SCH (09:55)
[2021-08-06] MEDS: LORATADINE 10 MG TABLET PO SCH (09:55)
[2021-08-06] MEDS: TAMSULOSIN HCL 0.4 MG CAP PO SCH (09:55)
[2021-08-06] MEDS: NICOTINE 7 MG/24 HOURS TOPICAL PATCH TD SCH (09:56)
[2021-08-06] MEDS ORDERED: MIRTAZAPINE 15 MG TABLET (FP) ONE (18:50)
[2021-08-06] MEDS: ATORVASTATIN CA 10 MG TABLET (FP) PO SCH (21:11)
[2021-08-06] MEDS: MELATONIN 5 MG TABLETS PO SCH (21:11)
[2021-08-06] MEDS: THIAMINE HCL 100 MG TABLET (FP) PO SCH (21:11)
[2021-08-06] MEDS: MIRTAZAPINE 30 MG TABLET PO SCH (21:12)
[2021-08-07] MEDS: PRENATAL VITAMINS W/ FOLIC ACID TABLET (FP) PO SCH (10:04)
[2021-08-07] MEDS: TAMSULOSIN HCL 0.4 MG CAP PO SCH (10:05)
[2021-08-07] MEDS: ASPIRIN 81 MG CHEWABLE TABLETS PO SCH (10:05)
[2021-08-07] MEDS: NICOTINE 7 MG/24 HOURS TOPICAL PATCH TD SCH (12:39)
[2021-08-07] MEDS: LORATADINE 10 MG TABLET PO SCH (14:44)
[2021-08-07] MEDS ORDERED: MIRTAZAPINE 15 MG TABLET (FP) ONE (20:29)
[2021-08-07] MEDS: THIAMINE HCL 100 MG TABLET (FP) PO SCH (21:24)
[2021-08-07] MEDS: ATORVASTATIN CA 10 MG TABLET (FP) PO SCH (21:24)
[2021-08-07] MEDS: MIRTAZAPINE 30 MG TABLET PO SCH (21:25)
[2021-08-07] MEDS: MELATONIN 5 MG TABLETS PO SCH (21:25)
[2021-08-07] MEDS ORDERED: TUBERCULIN PPD 5 TU/0.1ML VIAL ID ONE (21:27)
[2021-08-08] MEDS: ASPIRIN 81 MG CHEWABLE TABLETS PO SCH (09:15)
[2021-08-08] MEDS: LORATADINE 10 MG TABLET PO SCH (09:16)
[2021-08-08] MEDS: TAMSULOSIN HCL 0.4 MG CAP PO SCH (09:16)
[2021-08-08] MEDS: NICOTINE 7 MG/24 HOURS TOPICAL PATCH TD SCH (09:16)
[2021-08-08] MEDS: PRENATAL VITAMINS W/ FOLIC ACID TABLET (FP) PO SCH (09:16)
[2021-08-08] MEDS ORDERED: MIRTAZAPINE 15 MG TABLET (FP) ONE (18:38)
[2021-08-08] MEDS: ATORVASTATIN CA 10 MG TABLET (FP) PO SCH (21:10)
[2021-08-08] MEDS: THIAMINE HCL 100 MG TABLET (FP) PO SCH (21:10)
[2021-08-08] MEDS: MIRTAZAPINE 30 MG TABLET PO SCH (21:10)
[2021-08-08] MEDS: MELATONIN 5 MG TABLETS PO SCH (21:10)
[2021-08-09] MEDS: ASPIRIN 81 MG CHEWABLE TABLETS PO SCH (09:16)
[2021-08-09] MEDS: NICOTINE 7 MG/24 HOURS TOPICAL PATCH TD SCH (09:16)
[2021-08-09] MEDS: LORATADINE 10 MG TABLET PO SCH (09:16)
[2021-08-09] MEDS: TAMSULOSIN HCL 0.4 MG CAP PO SCH (09:16)
[2021-08-09] MEDS: PRENATAL VITAMINS W/ FOLIC ACID TABLET (FP) PO SCH (09:16)
[2021-08-09] MEDS ORDERED: MIRTAZAPINE 15 MG TABLET (FP) ONE (19:17)
[2021-08-09] MEDS: MELATONIN 5 MG TABLETS PO SCH (21:16)
[2021-08-09] MEDS: ATORVASTATIN CA 10 MG TABLET (FP) PO SCH (21:16)
[2021-08-09] MEDS: THIAMINE HCL 100 MG TABLET (FP) PO SCH (21:16)
[2021-08-09] MEDS: MIRTAZAPINE 30 MG TABLET PO SCH (21:17)
[2021-08-10] MEDS: TAMSULOSIN HCL 0.4 MG CAP PO SCH (10:18)
[2021-08-10] MEDS: ASPIRIN 81 MG CHEWABLE TABLETS PO SCH (10:19)
[2021-08-10] MEDS: NICOTINE 7 MG/24 HOURS TOPICAL PATCH TD SCH (10:19)
[2021-08-10] MEDS: LORATADINE 10 MG TABLET PO SCH (10:19)
[2021-08-10] MEDS: PRENATAL VITAMINS W/ FOLIC ACID TABLET (FP) PO SCH (10:19)
[2021-08-10] MEDS ORDERED: MIRTAZAPINE 15 MG TABLET (FP) ONE (18:55)
[2021-08-10] MEDS: MIRTAZAPINE 30 MG TABLET PO SCH (21:14)
[2021-08-10] MEDS: THIAMINE HCL 100 MG TABLET (FP) PO SCH (21:14)
[2021-08-10] MEDS: MELATONIN 5 MG TABLETS PO SCH (21:14)
[2021-08-10] MEDS: ATORVASTATIN CA 10 MG TABLET (FP) PO SCH (21:14)
[2021-08-11] MEDS: TAMSULOSIN HCL 0.4 MG CAP PO SCH (09:43)
[2021-08-11] MEDS: LORATADINE 10 MG TABLET PO SCH (09:44)
[2021-08-11] MEDS: NICOTINE 7 MG/24 HOURS TOPICAL PATCH TD SCH (09:44)
[2021-08-11] MEDS: PRENATAL VITAMINS W/ FOLIC ACID TABLET (FP) PO SCH (09:44)
[2021-08-11] MEDS: ASPIRIN 81 MG CHEWABLE TABLETS PO SCH (09:44)
[2021-08-11] MEDS ORDERED: MIRTAZAPINE 15 MG TABLET (FP) ONE (20:29)
[2021-08-11] MEDS: THIAMINE HCL 100 MG TABLET (FP) PO SCH (21:19)
[2021-08-11] MEDS: ATORVASTATIN CA 10 MG TABLET (FP) PO SCH (21:19)
[2021-08-11] MEDS: MELATONIN 5 MG TABLETS PO SCH (21:19)
[2021-08-11] MEDS: MIRTAZAPINE 30 MG TABLET PO SCH (21:19)
[2021-08-12 06:27] VITALS: PULSE 62
[2021-08-12] MEDS: ASPIRIN 81 MG CHEWABLE TABLETS PO SCH (09:30)
[2021-08-12] MEDS: TAMSULOSIN HCL 0.4 MG CAP PO SCH (09:31)
[2021-08-12] MEDS: NICOTINE 7 MG/24 HOURS TOPICAL PATCH TD SCH (09:31)
[2021-08-12] MEDS: LORATADINE 10 MG TABLET PO SCH (09:31)
[2021-08-12] MEDS: PRENATAL VITAMINS W/ FOLIC ACID TABLET (FP) PO SCH (09:31)
[2021-08-12] MEDS ORDERED: GABAPENTIN 300 MG CAPSULE PO SCH (10:00)
[2021-08-12] MEDS: GABAPENTIN 300 MG CAPSULE PO SCH ×2 (13:05→21:13)
[2021-08-12] MEDS ORDERED: MIRTAZAPINE 15 MG TABLET (FP) ONE ×2 (19:11→21:12)
[2021-08-12] MEDS: THIAMINE HCL 100 MG TABLET (FP) PO SCH (21:11)
[2021-08-12] MEDS: MELATONIN 5 MG TABLETS PO SCH (21:11)
[2021-08-12] MEDS: ATORVASTATIN CA 10 MG TABLET (FP) PO SCH (21:12)
[2021-08-12] MEDS: MIRTAZAPINE 30 MG TABLET PO SCH (21:13)
[2021-08-12] MEDS: METHYL SALICYLATE/MENTHOL OINT 30 GM TUBE TP SCH (21:14)
[2021-08-12] MEDS ORDERED: METHYL SALICYLATE/MENTHOL OINT 30 GM TUBE TP SCH (22:00)
[2021-08-13 06:27] VITALS: BP 113/73; TEMP 97.3
[2021-08-13] MEDS: GABAPENTIN 300 MG CAPSULE PO SCH ×2 (06:52→14:04)
[2021-08-13] MEDS: TAMSULOSIN HCL 0.4 MG CAP PO SCH (09:27)
[2021-08-13] MEDS: ASPIRIN 81 MG CHEWABLE TABLETS PO SCH (09:27)
[2021-08-13] MEDS: PRENATAL VITAMINS W/ FOLIC ACID TABLET (FP) PO SCH (09:27)
[2021-08-13] MEDS: LORATADINE 10 MG TABLET PO SCH (09:27)
[2021-08-13] MEDS: METHYL SALICYLATE/MENTHOL OINT 30 GM TUBE TP SCH (09:28)
[2021-08-13] MEDS: NICOTINE 7 MG/24 HOURS TOPICAL PATCH TD SCH (09:28)
[2021-08-13] MEDS ORDERED: FLUTICASONE PROP 0.05% 16 GM NASAL SPRAY NS SCH (10:00)
== END 2021-08-13 14:05 | disposition home or self-care (01) | DRG 772 ==
LOC: YASAS 13:26 → Y5N 13:27 → Y3E 08-06 13:04
PROVIDERS: ADMIT Allergy & Immunology; ATTEND Psychiatry & Neurology Psychiatry
PROC: HZ42ZZZ Group Counseling for Substance Abuse Treatment, Cognitive-Behavioral (ICD-10-PCS; principal; 2021-08-05)
DX: F11.20 Opioid dependence, uncomplicated (principal); F10.20 Alcohol dependence, uncomplicated; F14.20 Cocaine dependence, uncomplicated; F17.210 Nicotine dependence, cigarettes, uncomplicated; F32.A Depression, unspecified; F43.10 Post-traumatic stress disorder, unspecified; E78.5 Hyperlipidemia, unspecified; M47.819 Spondylosis without myelopathy or radiculopathy, site unspecified; M54.50 Low back pain, unspecified; G89.29 Other chronic pain; N40.0 Benign prostatic hyperplasia without lower urinary tract symptoms; R07.0 Pain in throat
CPT/HCPCS: C9803-CS; U0003; U0005

== ENCOUNTER 2023-03-03 17:02 | Inpatient (IN) | payer OTHER ==
[2023-03-03 21:14] VITALS: BMI 28.3
[2023-03-03] MEDS ORDERED: IBUPROFEN 400 MG TABLET (FP) PO PRN (22:33)
[2023-03-03] MEDS ORDERED: POLYETHYLENE GLYCOL (HEALTHYLAX) 3350 17 GM PACKET PO PRN (22:33)
[2023-03-03] MEDS ORDERED: NALOXONE HCL 0.4 MG/ML VIAL IM PRN (22:33)
[2023-03-03] MEDS ORDERED: IBUPROFEN 600 MG TABLET (FP) PO PRN (22:33)
[2023-03-03] MEDS ORDERED: ONDANSETRON *ODT* 4 MG TABLET SL PRN (22:33)
[2023-03-03] MEDS ORDERED: ACETAMINOPHEN 325 MG TABLET (FP) PO PRN (22:33)
[2023-03-03] MEDS ORDERED: NALOXONE HCL (KLOXXADO) 8 MG SPRAY NS PRN (22:33)
[2023-03-03] MEDS ORDERED: MAG HYDROX/AL HYDROX/SIMETH 30 ML UNIT-DOSE CUP PO PRN (22:33)
[2023-03-03] MEDS ORDERED: MAGNESIUM HYDROX 2400MG/30ML ORAL SUSPENSION 30 ML CUP PO PRN (22:33)
[2023-03-03] MEDS ORDERED: DICYCLOMINE HCL 10 MG CAPSULE PO PRN (22:33)
[2023-03-03] MEDS ORDERED: BISMUTH SUBSALICYLATE 524 MG/30 ML PO PRN (22:33)
[2023-03-03] MEDS ORDERED: BENZONATATE 200 MG CAPSULE PO PRN (22:33)
[2023-03-03] MEDS ORDERED: LOPERAMIDE HCL 2 MG CAPSULE PO PRN (22:33)
[2023-03-03] MEDS ORDERED: P-EPHED 60MG/TRIPROLIDI 2.5MG TABLET PO PRN (22:33)
[2023-03-03] MEDS ORDERED: guaiFENesin 600 MG TABLET.ER (FP) PO PRN (22:33)
[2023-03-03] MEDS ORDERED: BENZOCAINE/MENTHOL (CHLORASEPTIC ) LOZENGE MM PRN (22:33)
[2023-03-03] MEDS ORDERED: chlordiazePOXIDE HCL 25 MG CAPSULE PO PRN (22:47)
[2023-03-03] MEDS ORDERED: cloNIDine HCL 0.1 MG TABLET PO PRN (22:52)
[2023-03-04] MEDS: LIDOCAINE PATCH REMOVAL MC SCH ×2 (00:08→22:17)
[2023-03-04] MEDS: chlordiazePOXIDE HCL 25 MG CAPSULE PO SCH ×5 (00:34→22:16)
[2023-03-04] MEDS: ASPIRIN 81 MG CHEWABLE TABLETS PO SCH ×2 (00:35→10:21)
[2023-03-04] MEDS: TAMSULOSIN HCL 0.4 MG CAP PO SCH ×2 (00:35→22:16)
[2023-03-04] MEDS ORDERED: methaDONE HCL 10 MG TABLET (FOR DETOX USE ONLY) PO ONE (09:37)
[2023-03-04] MEDS ORDERED: cloNIDine HCL 0.1 MG TABLET PO PRN (09:37)
[2023-03-04] MEDS: LIDOCAINE 5% TOPICAL PATCH TP SCH (10:21)
[2023-03-04] MEDS: PRENATAL VITAMINS W/ FOLIC ACID TABLET (FP) PO SCH (10:21)
[2023-03-04] MEDS: LORATADINE 10 MG TABLET PO PRN (17:38)
[2023-03-04] MEDS: METHOCARBAMOL 500 MG TABLET PO PRN (17:38)
[2023-03-04] MEDS: MELATONIN 5 MG TABLETS PO SCH (22:16)
[2023-03-04] MEDS: THIAMINE HCL 100 MG TABLET (FP) PO SCH (22:16)
[2023-03-04] MEDS: ATORVASTATIN CA 10 MG TABLET (FP) PO SCH (22:17)
[2023-03-04] MEDS: MIRTAZAPINE 15 MG TABLET (FP) PO SCH (22:18)
[2023-03-05] MEDS: chlordiazePOXIDE HCL 25 MG CAPSULE PO SCH ×4 (05:57→22:22)
[2023-03-05] MEDS: ASPIRIN 81 MG CHEWABLE TABLETS PO SCH (10:54)
[2023-03-05] MEDS: PRENATAL VITAMINS W/ FOLIC ACID TABLET (FP) PO SCH (10:54)
[2023-03-05] MEDS: LIDOCAINE 5% TOPICAL PATCH TP SCH (10:58)
[2023-03-05] MEDS: LIDOCAINE PATCH REMOVAL MC SCH (22:22)
[2023-03-05] MEDS: ATORVASTATIN CA 10 MG TABLET (FP) PO SCH (22:22)
[2023-03-05] MEDS: TAMSULOSIN HCL 0.4 MG CAP PO SCH (22:22)
[2023-03-05] MEDS: MELATONIN 5 MG TABLETS PO SCH (22:22)
[2023-03-05] MEDS: THIAMINE HCL 100 MG TABLET (FP) PO SCH (22:22)
[2023-03-05] MEDS: MIRTAZAPINE 15 MG TABLET (FP) PO SCH (22:22)
[2023-03-06] MEDS ORDERED: chlordiazePOXIDE HCL 10 MG CAPSULE PO PRN
[2023-03-06] MEDS: chlordiazePOXIDE HCL 10 MG CAPSULE PO SCH ×4 (05:41→22:27)
[2023-03-06] MEDS ORDERED: methaDONE HCL 10 MG TABLET (FOR DETOX USE ONLY) PO ONE (10:00)
[2023-03-06] MEDS: ASPIRIN 81 MG CHEWABLE TABLETS PO SCH (10:37)
[2023-03-06] MEDS: PRENATAL VITAMINS W/ FOLIC ACID TABLET (FP) PO SCH (10:37)
[2023-03-06] MEDS: LIDOCAINE 5% TOPICAL PATCH TP SCH (10:38)
[2023-03-06] MEDS: TAMSULOSIN HCL 0.4 MG CAP PO SCH (22:26)
[2023-03-06] MEDS: MIRTAZAPINE 15 MG TABLET (FP) PO SCH (22:26)
[2023-03-06] MEDS: ATORVASTATIN CA 10 MG TABLET (FP) PO SCH (22:26)
[2023-03-06] MEDS: THIAMINE HCL 100 MG TABLET (FP) PO SCH (22:27)
[2023-03-06] MEDS: LIDOCAINE PATCH REMOVAL MC SCH (22:27)
[2023-03-06] MEDS: MELATONIN 5 MG TABLETS PO SCH (22:27)
[2023-03-07] MEDS: chlordiazePOXIDE HCL 10 MG CAPSULE PO SCH ×2 (05:28→17:24)
[2023-03-07] MEDS: ASPIRIN 81 MG CHEWABLE TABLETS PO SCH (10:29)
[2023-03-07] MEDS: PRENATAL VITAMINS W/ FOLIC ACID TABLET (FP) PO SCH (10:29)
[2023-03-07] MEDS: LIDOCAINE 5% TOPICAL PATCH TP SCH (10:29)
[2023-03-07] MEDS: METHOCARBAMOL 500 MG TABLET PO PRN (17:25)
[2023-03-07] MEDS: LIDOCAINE PATCH REMOVAL MC SCH (22:13)
[2023-03-07] MEDS: THIAMINE HCL 100 MG TABLET (FP) PO SCH (22:19)
[2023-03-07] MEDS: MELATONIN 5 MG TABLETS PO SCH (22:19)
[2023-03-07] MEDS: ATORVASTATIN CA 10 MG TABLET (FP) PO SCH (22:20)
[2023-03-07] MEDS: MIRTAZAPINE 15 MG TABLET (FP) PO SCH (22:20)
[2023-03-07] MEDS: TAMSULOSIN HCL 0.4 MG CAP PO SCH (22:20)
[2023-03-08] MEDS ORDERED: chlordiazePOXIDE HCL 10 MG CAPSULE PO ONE (05:00)
[2023-03-08] MEDS ORDERED: methaDONE HCL 10 MG TABLET (FOR DETOX USE ONLY) PO ONE (10:00)
[2023-03-08] MEDS: ASPIRIN 81 MG CHEWABLE TABLETS PO SCH (10:05)
[2023-03-08] MEDS: PRENATAL VITAMINS W/ FOLIC ACID TABLET (FP) PO SCH (10:05)
[2023-03-08] MEDS: LIDOCAINE 5% TOPICAL PATCH TP SCH (10:05)
[2023-03-08] MEDS: LORATADINE 10 MG TABLET PO PRN (20:38)
[2023-03-08] MEDS: MIRTAZAPINE 15 MG TABLET (FP) PO SCH (22:13)
[2023-03-08] MEDS: ATORVASTATIN CA 10 MG TABLET (FP) PO SCH (22:13)
[2023-03-08] MEDS: THIAMINE HCL 100 MG TABLET (FP) PO SCH (22:13)
[2023-03-08] MEDS: MELATONIN 5 MG TABLETS PO SCH (22:13)
[2023-03-08] MEDS: LIDOCAINE PATCH REMOVAL MC SCH (22:14)
[2023-03-08] MEDS: TAMSULOSIN HCL 0.4 MG CAP PO SCH (22:14)
[2023-03-09 07:00] VITALS: BP 131/96; PULSE 78; RESP 18; TEMP 97.7
[2023-03-09] MEDS: PRENATAL VITAMINS W/ FOLIC ACID TABLET (FP) PO SCH (10:32)
[2023-03-09] MEDS: LIDOCAINE 5% TOPICAL PATCH TP SCH (10:32)
[2023-03-09] MEDS: ASPIRIN 81 MG CHEWABLE TABLETS PO SCH (10:32)
== END 2023-03-09 10:52 | disposition home or self-care (01) | DRG 773 ==
LOC: YASAS 17:02 → Y6N 23:08
PROVIDERS: ADMIT Allergy & Immunology; ATTEND Surgery
PROC: HZ2ZZZZ Detoxification Services for Substance Abuse Treatment (ICD-10-PCS; principal; 2023-03-03)
DX: F11.23 Opioid dependence with withdrawal (principal); F10.230 Alcohol dependence with withdrawal, uncomplicated; F14.20 Cocaine dependence, uncomplicated; F17.210 Nicotine dependence, cigarettes, uncomplicated; F19.24 Other psychoactive substance dependence with psychoactive substance-induced mood disorder; F43.10 Post-traumatic stress disorder, unspecified; E78.5 Hyperlipidemia, unspecified; M54.50 Low back pain, unspecified; G89.29 Other chronic pain; Z56.0 Unemployment, unspecified; Z59.00 Homelessness unspecified
CPT/HCPCS: 82962; 87635; 93005; 93010